=== PATIENT | female | born 1945 | race Caucasian/White ===

== ENCOUNTER 2016-11-12 06:42 | Inpatient (IN) | payer MEDICARE, MEDICAID ==
[~2016-11-12] VITALS: Ht 157.5 cm; Wt 56.2 kg
[~2016-11-12 06:42] MED LIST: ACET-461 PO; ALBU17AE23 IH; ALBU8.5H2 INH; ASP81TEC PO; AZIT250T81 PO; BUDE10.2 IH; BUDE6HFA INH; CETI10TA17 PO; CHOL4PAC19 PO; CIPR500T78 PO; CITA10TA70 PO; CPR500T PO; CPRH4T PO; DIVA-20 PO; DULA0.75 SQ; FURO20TA4; HCT25T PO; HYDR-3583 PO; INSASP10V SC; INSHUMR1 IV; INSN1U SQ; INSU100I10 SQ; INSU100I14 SQ; INSU100I32 SQ; INSU100V6 SQ; LEVO500T2 PO; LISI10TA PO; LISI40TA PO; LORA0.5T PO; METF-144 PO; METF500T4 PO; METO-333 PO; METO25TA2 PO; MIRT15TA6 PO; MIRT30TA6 PO; MTP50T PO; MTR500T PO; NAPR500T3 PO; ND-PRIM50T PO; NITR100C3 PO; OMEP20CA12 PO; ONDA4TAB11 PO; ONDA4TAB8 PO; ONDA8TAB13 PO; ONDA8TAB9 PO; PGLT30T PO; PIOG45TA PO; PNT40TEC PO; POLY17PO23 PO; PRED10TA PO; RT-ALBUINH IH; SERT50TA9 PO; SIMV20TA3 PO; SMV20T PO; SULF1TAB38 PO; TIOT18CA IH; TIOT18CA2 INH; TRAM50TA2 PO; UMEC62.5 IH; [UNRECOGNIZED DRUG - CODE] OU
--- OUTSIDE RECORDS SUMMARY | 2016-11-12 06:50 | XMS REPORT ---
Author Author ILA HERNANDEZ Organization [employer] Address Unknown Phone Unavailable Care Team Providers Care Financial Project Manager Name Role Phone ILA HERNANDEZ CP Unavailable Allergies No Known Allergies Problems Problem Type Condition Code Onset Dates Condition Status Problem Nausea R11.0 Active Problem Dry eyes H04.123 Active Problem Episode of recurrent major depressive disorder, unspecified depression episode severity F33.9 Active Problem Type 2 diabetes mellitus with hyperglycemia E11.65 Active Problem Generalized pain R52 Active Problem Diabetes mellitus due to underlying condition with hypoglycemia with coma E08.641 Active Problem Fever, unspecified fever cause R50.9 Active Problem Gastroesophageal reflux disease without esophagitis K21.9 Active Problem Seasonal allergies J30.2 Active Problem Essential hypertension I10 Active Problem Coronary artery disease involving [place] coronary artery of [place] heart without angina pectoris I25.10 Active Problem Chronic obstructive pulmonary disease, unspecified COPD type J44.9 Active Problem Type 2 diabetes mellitus with diabetic neuropathy, unspecified E11.40 Active Problem Osteoarthritis M19.90 Active Problem Chronic obstructive pulmonary disease, unspecified J44.9 Active Medications No Known Medications Results No Known Results Summary Purpose [employer] Submission
--- NOTE | 2016-11-12 07:06 | ED Fall/Injury ---
General Stated Complaint: FALL Source: patient (LIMITED HISTORIAN--PT WAS GIVEN PAIN MEDICATION BY EMS AND PT IS SOMEWHAT DROWSY AND GIVES MINIMAL ANSWERS--MOSTLY JUST NODS HEAD YES/NO APPROPRIATELY. DOES NOT APPEAR CONFUSED, ALTHOUGH DOES HAVE A DX OF DEMENTIA), EMS, custodial records, old records (ALL PMH IS FROM OLD RECORDS AND [facility] PAPERS) History of Present Illness Time seen by provider: 06:50 Initial Comments PT ARRIVES VIA EMS FROM HOME AT [facility] PT STATES SHE GOT UP SOMETIME DURING THE NIGHT TO GO TO THE BATHROOM, AND FELL, LANDING ON HER LEFT SIDE PT HAS A WALKER BUT WAS NOT USING IT AT THE TIME PT STATES SHE DID NOT HIT HER HEAD OR HAVE LOSS OF CONSCIOUSNESS C/O LEFT HIP AND LEFT WRIST PAIN --DENIES PAIN ANYWHERE ELSE WAS FOUND BY NURSING STAFF THIS AM ON THE FLOOR LAYING ON HER LEFT SIDE PT DENIES ANY HISTORY OF FRACTURES EMS GAVE FENTANYL 50 MCG PRIOR TO ARRIVAL PCP: ROQUE-SANDY-DR. GARZA, RISA HERNANDEZ Allergies and Home Medications Allergies Coded Allergies: No Known Drug Allergies (Unverified , 02/12/11) Home Medications Acetaminophen 500 Mg Tablet 1,000 MG PO Q4H PRN PRN PAIN/TEMP (Reported) TAKES 2 (500MG) TABLETS Albuterol Sulfate 8.5 Gm Hfa.aer.ad 2 PUFF IH Q4H PRN PRN SHORTNESS OF BREATH ( Reported) Aspirin 81 Mg Tabec 81 MG PO DAILY (Reported) Budesonide/Formoterol Fumarate 10.2 Gm Hfa.aer.ad 2 PUFF IH BID (Reported) Cetirizine Hcl 10 Mg Tablet 10 MG PO DAILY PRN PRN ALLERGIES (Reported) Insulin Aspart 300 Units/3 Ml Solution SQ TID (Reported) 1 UNIT FOR EVERY 35 BS ABOVE 150 3X DAILY 150-185 1 UNIT 186-221 2 UNITS [phone] 3 UNITS [phone] 4 UNITS [phone] 5 UNITS [phone] 6 UNITS [phone] 7 UNITS [phone] 8 UNITS [phone] 9 UNITS [phone] 10 UNITS CALL NURSE IF ABOVE 509 Insulin Aspart 300 Units/3 Ml Solution 10 UNITS SQ AC (Reported) Insulin Degludec 100 Unit/1 Ml Insuln.pen 30Days 5 UNITS SQ 0700 Prescribed by: JOSE ADAM on 05/27/16 1041 Lorazepam 0.5 Mg Tablet 0.25-0.5 MG PO BID (Reported) TAKES 1/2 TO 1 (0.5MG) TABLET Metformin HCl 500 Mg Tablet 500 MG PO DAILY (Reported) Metoprolol Tartrate 25 Mg Tablet 25 MG PO HS (Reported) HOLD IF PULSE BELOW 60 Naphazoline Hcl/Phenir Mal 15 Ml Drops 2 DROPS OU QID PRN PRN ALLERGIES ( Reported) Naproxen 500 Mg Tablet 500 MG PO BID WITH MEALS (Reported) Omeprazole 20 Mg Capsule.dr 20 MG PO DAILY (Reported) Ondansetron 4 Mg/Udtablet Tab.rapdis 4 MG PO Q8H PRN PRN NAUSEA (Reported) Sertraline HCl 50 Mg Tablet 50 MG PO DAILY (Reported) Tramadol HCl 50 Mg Tablet 50-100 MG PO Q6H PRN PRN PAIN (Reported) Umeclidinium [place] 62.5 Mcg Blst.w.dev 1 PUFF IH DAILY (Reported) Constitutional: no symptoms reported Eyes: No Symptoms Reported Ears, Nose, Mouth, Throat: no symptoms reported Respiratory: no symptoms reported Cardiovascular: no symptoms reported Gastrointestinal: no symptoms reported Genitourinary: no symptoms reported Musculoskeletal: see HPI Skin: no symptoms reported Psychiatric/Neurological: No Symptoms ReportedDenies Headache, Denies Numbness , Denies Paresthesia, Denies Tingling, Denies Weakness Past Tcimqxi-Wrstwd-Fpnybo Hx Patient Social History Alcohol Use: Denies Use Smoking Status: Unknown if Ever Smoked Recent Foreign Travel: No Contact w/Someone Who Travel: No Recent Hopitalizations: No Immunizations Up To Date Tetanus Booster (TDap): Unknown PED Vaccines UTD: No Date of Pneumonia Vaccine: Date of Influenza Vaccine: Jun 29, 2014 Surgeries HX Surgeries: Yes ("stomach") Surgeries: Abdominal, Cardiac Respiratory Hx Respiratory Disorders: Yes Respiratory Disorders: Asthma, Sleep Apnea, COPD Cardiovascular Hx Cardiac Disorders: Yes Cardiac Disorders: Chronic Edema/Swelling, Coronary Artery Disease, High Cholesterol, Hypertension Neurological Hx Neurological Disorders: Yes Neurological Disorders: Dementia 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 Genitourinary Hx Genitourinary Disorders: Yes Genitourinary Disorders: Renal Failure, UTI-Chronic Gastrointestinal Hx Gastrointestinal Disorders: Yes (Constipation) Gastrointestinal Disorders: Gastroesophageal Reflux, Chronic Constipation Musculoskeletal Hx Musculoskeletal Disorders: Yes Musculoskeletal Disorders: Arthritis Endocrine Hx Endocrine Disorders: Yes Endocrine Disorders: Diabetes, Insulin dep HEENT HX ENT Disorders: Yes Hearing Impairment: Hard of Hearing Cancer Hx Cancer: No Psychosocial Hx Psychiatric Problems: Yes Behavioral Health Disorders: Anxiety, Depression Integumentary HX Skin/Integumentary Disorder: No Blood Transfusions Hx Blood Disorders: Yes (Anemia) Adverse Reaction to a Blood Tr: No Family Medical History Significant Family History: Heart Disease, COPD, Seizures Family Medial History: Congenital heart disease 18 MOTHER Physical Exam Vital Signs Vital Sign - Last 12Hours 11/12/16 06:49 Temp 97.0 Pulse 55 Resp 20 B/P 186/79 Pulse Ox 97 O2 Delivery Nasal Cannula O2 Flow Rate 3 Capillary Refill : General Appearance: WD/WN no apparent distress other (DROWSY) HEENT: PERRL/EOMI normal ENT inspection Neck: non-tender full range of motion supple normal inspection Cardiovascular: regular rate, rhythm no murmur Respiratory: chest non-tender normal breath sounds no respiratory distress no accessory muscle use Gastrointestinal: normal bowel sounds non tender soft Back: normal inspection no CVA tenderness no vertebral tenderness Extremities: other (TENDERNESS TO LEFT HIP WITH SHORTENING AND EXTERNAL ROTATION. DISTAL MOTOR/SENSORY/VASCULAR INTACT. LEFT WRIST WITH DEFORMITY AND SWELLING AND LIMITED ROM. DISTAL MOTOR/SENSORY/VASCULAR INTACT. 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 APPEARS TO HAVE LIMITED MEMORY--DIFFICULT TO DETERMINE FULL ORIENTATION PT WAS GIVEN PAIN MEDICATION PRIOR TO ARRIVAL ) Skin: normal color warm/dry [place] Coma Score Best Eye Response: (4) Open Spontaneously Best Verbal Response: (5) Oriented Best Motor Response: (6) Obeys Commands Bryant Total: 15 Progress/Results/Core Measures Results/Orders Lab Results Laboratory Tests Test 11/12/16 07:05 Range/Units Activated Partial Thromboplast Time 23 L 24-35 SEC Basophils # (Auto) 0.1 0.0-0.1 10^3/uL Basophils (%) (Auto) 1 0-10 % Eosinophils # (Auto) 0.3 0.0-0.3 10^3/uL Eosinophils (%) (Auto) 3 0-10 % Hematocrit 33 L 35-52 % Hemoglobin 10.6 L 11.5-16.0 G/DL INR Comment 1.0 0.8-1.4 Lymphocytes # (Auto) 1.2 1.0-4.0 X 10^3 Lymphocytes (%) (Auto) 12 12-44 % Mean Corpuscular Hemoglobin 27 25-34 PG Mean Corpuscular Hemoglobin Concent 32 32-36 G/DL Mean Corpuscular Volume 83 80-99 FL Mean Platelet Volume 12.3 H 7.4-10.4 FL Monocytes # (Auto) 0.6 0.0-1.0 X 10^3 Monocytes (%) (Auto) 6 0-12 % Neutrophils # (Auto) 7.5 1.8-7.8 X 10^3 Neutrophils (%) (Auto) 78 H 42-75 % Platelet Count 255 130-400 10^3/uL Prothrombin Time 12.8 12.2-14.7 SEC Red Blood Count 4.00 L 4.35-5.85 10^6/uL Red Cell Distribution Width 15.9 H 10.0-14.5 % White Blood Count 9.7 4.3-11.0 10^3/uL My Orders Orders-SEBAS HOROWITZ DO Saline Lock/Iv-Start (11/12/16 06:59) Ct Head/Cervical Spine Wo (11/12/16 06:59) Chest 1 View, Ap/Pa Only (11/12/16 06:59) Forearm, Left, 2 Views (11/12/16 06:59) Hand, Left, 3 Views (11/12/16 06:59) Pelvis (11/12/16 06:59) Hip, Left, 2 Views (11/12/16 06:59) Catheter(Urinary) Insert & Ass 03,15 (11/12/16 08:04) Monitor-Rhythm Ecg Trace Only (11/12/16 08:04) Cbc With Automated Diff (11/12/16 08:04) Comprehensive Metabolic Panel (11/12/16 08:04) Magnesium (11/12/16 08:04) Protime With Inr (11/12/16 08:04) Partial Thromboplastin Time (11/12/16 08:04) Ua Culture If Indicated (11/12/16 08:04) Type And Screen (11/12/16 08:04) Saline Lock/Iv-Start (11/12/16 08:04) D5 1/2 Ns 1000 Ml Iv Solution (Dextrose (11/12/16 08:15) Ekg Tracing (11/12/16 08:19) O2 (11/12/16 08:19) Fentanyl Injection (Sublimaze Injection (11/12/16 08:24) Vital Signs/I&O Vital Sign - Last 12Hours 11/12/16 06:49 Temp 97.0 Pulse 55 Resp 20 B/P 186/79 Pulse Ox 97 O2 Delivery Nasal Cannula O2 Flow Rate [address] HEAD/CERVICAL SPINE--NO ACUTE PROCESS, CHRONIC/DEGENERATIVE CHANGES, PER RADIOLOGIST REPORT @ 0754 CXR--NO ACUTE PROCESS PELVIS AND LEFT HIP XRAYS--INTERTROCHANTERIC FX LEFT FOREARM AND HAND XRAYS--DISPLACED DISTAL RADIUS FRACTURE AND ULNAR STYLOID FRACTURE PER RADIOLOGIST XRAY REPORTS AT 0826 Reviewed: Reviewed by Me Departure Communication Progress Notes 0800--SPOKE WITH DR. EDGAR, ACCEPTS PT FOR ADMIT 0801--SPOKE WITH DR. GAMA, COVERING FOR [facility], FOR MEDICAL MANAGEMENT. WOULD LIKE CARDIOLOGY CONSULTED 0802--SPOKE WITH DR. ANDERSEN FOR CARDIOLOGY CONSULT 0810--Ziyad CHEEK CRNA AND DR. TALA ASENCIO'S PA BOTH HERE TO SEE PT Impression Impression: Primary Impression: Closed intertrochanteric fracture of left femur Additional Impression: Closed traumatic displaced fracture of distal end of left radius Disposition: ADMITTED INPATIENT Condition: Stable Decision to Admit Reason: Admit from ER (Trauma) Decision to Admit/Date: Nov 12, 2016 Time/Decision to Admit Time: 08:00 Departure-Patient Inst. Referrals: FABI GARZA MD (PCP/Family) Primary Care Physician SEBAS HOROWITZ DO Nov 12, 2016 07:06
--- NOTE | 2016-11-12 07:47 | Diagnostic Imaging Report ---
PROCEDURE: CT head and CT cervical spine without contrast. TECHNIQUE: Multiple contiguous axial images were obtained through the brain and cervical spine without the use of intravenous contrast. Sagittal and coronal reformations through the cervical spine were then performed. INDICATION: Status post fall, found on floor earlier today. CORRELATION STUDY: CT head 03/22/2011. FINDINGS: CT HEAD: There is prominence of ventricles and sulci compatible with atrophic changes. Rather pronounced scattered areas of decreased attenuation likely owing to chronic small-vessel ischemic disease. There are more focal areas of lacunar-type infarct involving the bilateral basal ganglia, bilateral thalami, as well as the cole which overall may be slightly progressed from prior study. No midline shift or mass effect. No intracranial hemorrhage. No suggestion for hyperdense MCA sign. The bony calvarium intact. CT CERVICAL SPINE: Reformatted images demonstrate trace anterolisthesis, C2 on C3 and C3 on C4. The C4 vertebral body is with retrolisthesis on C5. It is likely degenerative in nature. Rather significant disc space narrowing particularly at C4-C5 and C5-C6 with rather prominent endplate osteophytes results in osseous narrowing and encroachment on the foramina and spinal canal. Posterior elements intact with asymmetric areas of hypertrophic facet arthropathy. The odontoid intact. Lung apices with emphysematous change. Rather dense calcification of the carotid bifurcations. IMPRESSION: CT HEAD: Negative for acute intracranial abnormality. There are, however, rather pronounced changes of likely small-vessel ischemic disease as well as multifocal areas of lacunar infarct. Findings have overall progressed since prior imaging. Possibility of subtle edema could easily go undetected given the rather pronounced chronic changes. CT CERVICAL SPINE: Negative for acute fracture or traumatic subluxation. Advanced asymmetric cervical spondylosis with disc space narrowing and endplate osteophyte formation resulting in spinal canal foraminal narrowing, C4-C5 and C5-C6 levels. Dictated by: Dictated on workstation # [id number]
--- NOTE | 2016-11-12 07:58 | Diagnostic Imaging Report ---
INDICATION: Found on floor. Pain and deformity. TECHNIQUE: 2 views of the left hip. CORRELATION STUDY: None. FINDINGS: Slightly impacted intertrochanteric femur fracture is noted. Alignment otherwise anatomic. Femur/acetabula relationship demonstrates mild degenerative changes, otherwise maintained. The remainder of the left hemipelvis unremarkable. IMPRESSION: Slightly impacted left intertrochanteric femur fracture. Dictated by: Dictated on workstation # [id number]
--- NOTE | 2016-11-12 08:00 | Diagnostic Imaging Report ---
INDICATION: Found on floor with deformity. TECHNIQUE: AP pelvis 7:51 AM. CORRELATION STUDY: None. FINDINGS: Impacted left intertrochanteric femur fracture is noted. Degenerative changes about the left hip. The remainder of the pelvis is intact. Pectineal lines and obturator rings maintained. Degenerative-type changes about the right hip. There is sclerotic change about the subcapital femoral neck region. Definitive fracture line not visualized. Vascular calcification present. IMPRESSION: Impacted left intertrochanteric proximal femur fracture. There is sclerotic change with questionable deformity of right subcapital femoral neck region. Correlation with symptoms in this area is recommended, possibility of impacted fracture not excluded. Consideration for dedicated right hip views. Dictated by: Dictated on workstation # [id number]
--- NOTE | 2016-11-12 08:00 | Diagnostic Imaging Report ---
INDICATION: Found on floor. Fractures. TECHNIQUE: Single view chest 7:50 AM. CORRELATION STUDY: 05/25/2016 FINDINGS: Heart size enlarged. Vasculature within normal limits. Chronic, senescent type changes about the lung parenchyma. No infiltrate, effusion or pneumothorax. No definitive displaced fracture. IMPRESSION: 1. Chronic change of the chest without evidence for acute traumatic abnormality. Dictated by: Dictated on workstation # [id number]
--- NOTE | 2016-11-12 08:05 | Diagnostic Imaging Report ---
INDICATION: Found on floor TECHNIQUE: 2 views of the left forearm. CORRELATION STUDY: None FINDINGS: There is a transverse dorsally dislocated distal left radius fracture. Impacted ulnar styloid process fracture. More proximally, the radius and ulna appearing to be intact. Distal humerus intact. Soft tissue swelling distally. IMPRESSION: 1. Impacted displaced retracted distal left radius fracture with impacted minimally displaced ulnar styloid process fracture. Dictated by: Dictated on workstation # [id number]
[2016-11-12 08:11] LABS: BASOPHILS # (AUTO) 0.1 10^3/uL (0.0-0.1); BASOPHILS % (AUTO) 1 % (0-10); EOSINOPHILS # (AUTO) 0.3 10^3/uL (0.0-0.3); EOSINOPHILS % (AUTO) 3 % (0-10); LYMPHOCYTES # (AUTO) 1.2 X 10^3 (1.0-4.0); LYMPHOCYTES % (AUTO) 12 % (12-44); MEAN CORPUSCULAR HEMOGLOBIN 27 PG (25-34); MEAN CORPUSCULAR HGB CONC 32 G/DL (32-36); MEAN CORPUSCULAR VOLUME 83 FL (80-99); MEAN PLATELET VOLUME 12.3 FL (7.4-10.4); MONOCYTES # (AUTO) 0.6 X 10^3 (0.0-1.0); MONOCYTES % (AUTO) 6 % (0-12); NEUTROPHILS # (AUTO) 7.5 X 10^3 (1.8-7.8); NEUTROPHILS % (AUTO) 78 % (42-75); PLATELET COUNT 255 10^3/uL (130-400); RED CELL DISTRIBUTION WIDTH 15.9 % (10.0-14.5); WHITE BLOOD COUNT 9.7 10^3/uL (4.3-11.0)
[2016-11-12 08:14] LABS: PROTHROMBIN TIME PATIENT 12.8 SEC (12.2-14.7)
[2016-11-12] MEDS ORDERED: D5 1/2 NS 1000 ML IV SOLUTION 1,000 ML IV ONE (08:15)
[2016-11-12 08:22] LABS: ALBUMIN 3.9 G/DL (3.2-4.5); BILIRUBIN,TOTAL 0.4 MG/DL (0.1-1.0); CALCIUM 8.9 MG/DL (8.5-10.1); CREATININE SERUM 1.12 MG/DL (0.60-1.30); POTASSIUM 3.8 MMOL/L (3.6-5.0); TOTAL PROTEIN 6.7 G/DL (6.4-8.2)
[2016-11-12] MEDS ORDERED: fentaNYL INJECTION 100 MCG/2 ML AMP IVP STA ×2 (08:24→09:12)
[2016-11-12 08:35] LABS: BILIRUBIN,URINE NEGATIVE (NEGATIVE); KETONES,URINE 1+ (NEGATIVE); LEUKOCYTE ESTERASE ,URINE 3+ (NEGATIVE); NITRITE,URINE NEGATIVE (NEGATIVE); PH,URINE 7 (5-9); PROTEIN,URINE 2+ (NEGATIVE); UROBILINOGEN,URINE NORMAL (NORMAL)
--- NOTE | 2016-11-12 08:50 | Diagnostic Imaging Report ---
INDICATION: Status post fall, found on floor. TECHNIQUE: 3 views of the left hand. CORRELATION STUDY: None. FINDINGS: There is predominantly transverse fracture of the distal metaphysis of the radius. There is dorsal displacement just under the width of the bone. There may be slightly comminuted fracture line extending into the articular surface as well. The carpal bones follow the displaced distal radial fracture fragment. Impacted ulnar styloid process fracture. IMPRESSION: Displaced impacted overriding distal left radius fracture. Impacted ulnar styloid process fracture. Dictated by: Dictated on workstation # [id number]
[2016-11-12 08:53] LABS: WBC,URINE 25-50 /HPF
--- NOTE | 2016-11-12 09:23 | Progress Note-Pre Operative ---
Pre-Operative Progress Note H&P Reviewed The H&P was reviewed, patient examined and no changes noted. Date H&P Reviewed: Nov 12, 2016 Time H&P Reviewed: 09:22 Pre-Operative Diagnosis: left closed, displaced intertrochanteric femur and distal radius fractures MATA EDGAR MD Nov 12, 2016 09:23
--- NOTE | 2016-11-12 09:25 | Progress Note-Post Operative ---
Post-Operative Progess Note Data Processing Manager Howie Perez Pre-Operative Diagnosis left closed, displaced intertrochanteric femur and distal radius fractures Post-Operative Diagnosis 1. Left closed, displaced intertrochanteric femur fracture 2. left closed, displaced distal radius fracture Post-Op Procedure Note Date of Procedure: Nov 12, 2016 Name of Procedure: 1. open reduction and internal fixation of the left proximal femur with a dynamic hip screw 2. closed reduction and percutaneous pin fixation of the left distal radius Anesthesia Type GETA Estimated blood loss (mL): 250 ml Packing: none Specimen(s) collected none MATA EDGAR MD Nov 12, 2016 09:25
[2016-11-12] MEDS ORDERED: LABETALOL HCL 20 MG/4 ML VIAL IV ONE (09:45)
--- NOTE | 2016-11-12 09:57 | Consultation-Cardiology ---
HPI-Cardiology Cardiology Consultation: Date of Consultation 11/12/16 Date of Admission Attending Physician Andrea Crockett MD Admitting Physician Gerardo Landeros MD Consulting Physician Claribel BOOGIE MD HPI: Chief Complaint: Fall This is a 71-year-old lady who presents for mechanical fall. She denies any syncope and remembers the fall after she tripped. She denies any chest pain or shortness of breath. She denies any significant past cardiac history. Review of Systems-Cardiology Review of Systems Constitutional: No As described under HPI, No no symptoms reported, No chills, No fever, No lightheadedness, No malaise, No tiredness, No weight loss, No weight gain, No other Eyes: No As described under HPI, No no symptoms reported, No blindness, No blurred vision, No contact lenses, No drainage, No decreased acuity, No foreign body sensation, No glasses, No inflammation, No pain, No photophobia, No previous injury, No shadows, No tunnel vision, No other, No vision change Ears/Nose/Throat: No As described under HPI, No no symptoms reported, No chronic hearing loss, No epistaxis, No ear discharge, No ear pain, No loose teeth, No mouth pain, No mouth swelling, No nasal drainage, No nose pain, No recent hearing loss, No throat pain, No throat swelling, No ulcerations, No other Respiratory: No no symptoms reported, No As described under HPI, No cough, No orthopnea, No shortness of breath, No SOB with excertion, No SOB at rest, No stridor, No wheezing, No other Cardiovascular: No no symptoms reported, No As described under HPI, No chest pain, No edema, No irregular heart rate, No lightheadedness, No palpitations, No syncope, No other Gastrointestinal: No no symptoms reported, No As described under HPI, No abdomen distended, No abdominal pain, No blood streaked bowels, No constipation , No diarrhea, No difficulty swallowing, No nausea, No poor appetite, No poor fluid intake, No rectal bleeding, No vomiting, No other, No nausea/vomiting/ diarrhea, No stool coloration changes Genitourinary: No no symptoms reported, No As described under HPI, No burning, No dysuria, No discharge, No frequency, No flank pain, No hematuria, No incontinence, No pain, No urgency, No other, No urine frequency changes, No urine coloration changes Musculoskeletal: joint pain Skin: No no symptoms reported, No As described under HPI, No change in color, No change in hair/nails, No dryness, No lesions, No lumps, No rash, No other, No skin related problems, No ulcerations, No rash on exposed areas, No ulcerations on exposed areas Psychiatric/Neurological: No As described under HPI, No anxiety, No depression , No emotional problems, No focal weakness, No headache, No no symptoms reported , No numbness, No other, No pre-existing deficit, No seizure, No syncope, No tingling, No tremors, No weakness WAR-Wvfibn-Jvlasn Hx Patient Social History Alcohol Use: Denies Use Smoking Status: Unknown if Ever Smoked Type Used: Cigarettes Recent Foreign Travel: No Recent Infectious Disease Expo: No Hospitalization with Isolation: Denies Immunizations Up To Date Tetanus Booster (TDap): Unknown Date of Pneumonia Vaccine: Date of Influenza Vaccine: Jun 29, 2014 Past Medical History PMH As described under Assessment. Family Medical History Family History: Congenital heart disease 19 MOTHER Allergies and Home Medications Allergies Coded Allergies: No Known Drug Allergies (Unverified , 02/12/11) Home Medications Acetaminophen 500 Mg Tablet 1,000 MG PO Q4H PRN PRN PAIN/TEMP (Reported) TAKES 2 (500MG) TABLETS Albuterol Sulfate 8.5 Gm Hfa.aer.ad 2 PUFF IH Q4H PRN PRN SHORTNESS OF BREATH ( Reported) Aspirin 81 Mg Tabec 81 MG PO DAILY (Reported) Budesonide/Formoterol Fumarate 10.2 Gm Hfa.aer.ad 2 PUFF IH BID (Reported) Cetirizine Hcl 10 Mg Tablet 10 MG PO DAILY PRN PRN ALLERGIES (Reported) Insulin Aspart 300 Units/3 Ml Solution SQ TID (Reported) 1 UNIT FOR EVERY 35 BS ABOVE 150 3X DAILY 150-185 1 UNIT 186-221 2 UNITS 222-257 3 UNITS 258-293 4 UNITS 294-329 5 UNITS 330-365 6 UNITS 366-401 7 UNITS [phone] 8 UNITS [phone] 9 UNITS [phone] 10 UNITS CALL NURSE IF ABOVE 509 Insulin Aspart 300 Units/3 Ml Solution 10 UNITS SQ AC (Reported) Insulin Degludec 100 Unit/1 Ml Insuln.pen 30Days 5 UNITS SQ 0700 Prescribed by: JOSE ADAM on 05/27/16 1041 Lorazepam 0.5 Mg Tablet 0.25-0.5 MG PO BID (Reported) TAKES 1/2 TO 1 (0.5MG) TABLET Metformin HCl 500 Mg Tablet 500 MG PO DAILY (Reported) Metoprolol Tartrate 25 Mg Tablet 25 MG PO HS (Reported) HOLD IF PULSE BELOW 60 Naphazoline Hcl/Phenir Mal 15 Ml Drops 2 DROPS OU QID PRN PRN ALLERGIES ( Reported) Naproxen 500 Mg Tablet 500 MG PO BID WITH MEALS (Reported) Omeprazole 20 Mg Capsule.dr 20 MG PO DAILY (Reported) Ondansetron 4 Mg/Udtablet Tab.rapdis 4 MG PO Q8H PRN PRN NAUSEA (Reported) Sertraline HCl 50 Mg Tablet 50 MG PO DAILY (Reported) Tramadol HCl 50 Mg Tablet 50-100 MG PO Q6H PRN PRN PAIN (Reported) Umeclidinium [place] 62.5 Mcg Blst.w.dev 1 PUFF IH DAILY (Reported) Physical Exam-Cardiology Physical Exam Vital Signs/I&O Vital Sign - Last 12Hours 11/12/16 11/12/16 11/12/16 06:49 07:00 09:03 Temp 97.0 97.9 Pulse 55 78 Resp 20 14 B/P 186/79 201/86 Pulse Ox 97 98 97 O2 Delivery Nasal Cannula Nasal Cannula Nasal Cannula O2 Flow Rate 3 2 Capillary Refill : Less Than 3 Seconds Constitutional: No appears stated age, No AAO x 3, No apparent distress, No PERRL, No well-developed, No well-nourished, No other HEENT: No PERRL, No normal ENT inspection, No TMs normal, No pharynx normal, No scleral icterus (R), No scleral icterus (L), No pale conjunctivae (R), No pale conjunctivae (L), No photophobia, No TM abnormal (R), No TM abnormal (L), No pharyngeal erythema, No tonsillar exudate, No other, No discharge, No EOMI, No hearing is well preserved, No hard of hearing, No oral hygience is good, No ulceration, No xanthelasmas are seen Neck: No non-tender, No full range of motion, No supple, No normal inspection, No carotid bruit, No limited range of motion, No lymphadenopathy (R), No lymphadenopathy (L), No tender lateral, No tender midline, No thyromegaly, No other, No carotid pulses are 2 + bilaterally, No with good upstrokes Respiratory: No accessory muscle use, No respiratory distress, No chest tender , No chest expansion is symmetric, No chest is bilaterally symmetric, No lungs clear to percussion, No lungs clear to auscultation, No crackles, No rhonchi, No rales, No stridor, No wheezing, No pleural rub, No other Cardiovascular: No regular rate-rhythm, No irregularly irregular, No extra beats, No parasternal heave is noted, No JVD, No edema, No bradycardia, No tachycardia, No point of maximal impulse, No cardiac thrills are palpable, No S1 and S2, No gallop/S3, No gallop/S4, No diastolic murmur, systolic murmurNo friction rub, No click, No other Gastrointestinal: No tender, No soft, No round, No distended, No pulsatile mass , No organomegaly, No guarding, No rebound, No tenderness, No hernia, No mass, No audible bowel sounds, No abnormal bowel sounds, No abdominal bruits, No spleenomegaly, No other Rectal: deferred Extremities: No normal inspection, No pedal edema, No calf tenderness, No normal capillary refill, No calf tenderness, No inflammation, No pedal edema, No slow capillary refill, No swelling, No other, No abrasion, No clubbing, No cyanosis, No ecchymosis, No laceration, No no lower extremity edema bilateral, No significant edema, No tenderness, No wound Neurologic/Psychiatric: No corn press operator II-XII nml as tested, No no motor/sensory deficits, No alert, No normal mood/affect, No oriented x 3, No abnormal cerebellar tests, No abnormal corn press operator II-XII, No abnormal gait, No aphasia, No EOM palsy, No facial droop, No motor weakness, No sensory deficit, No depressed affect, No disoriented x 3, No other, No grossly intact, No power is 5/5 both on sides Skin: No normal color, No warm/dry, No cyanosis, No cool, No diaphoresis, No damp, No ecchymosis, No jaundice, No mottled, No pallor, No rash, No tattoos/ piercings, No ulcerations, No rash on exposed areas, No ulcerations on exposed areas, No other Data Review Labs Laboratory Tests 11/12/16 07:05: Activated Partial Thromboplast Time 23L, Alanine Aminotransferase (ALT/SGPT) 10 , Albumin 3.9, Alkaline Phosphatase 85, Anion Gap 10, Aspartate Amino Transf ( AST/SGOT) 16, BUN/Creatinine Ratio 22, Basophils # (Auto) 0.1, Basophils (%) ( Auto) 1, Blood Urea Nitrogen 25H, Calcium Level 8.9, Carbon Dioxide Level 26, Chloride Level 103, Creatinine 1.12, Eosinophils # (Auto) 0.3, Eosinophils (%) ( Auto) 3, Estimat Glomerular Filtration Rate 48, Glucose Level 241H, Hematocrit 33L, Hemoglobin 10.6L, INR Comment 1.0, Lymphocytes # (Auto) 1.2, Lymphocytes (% ) (Auto) 12, Magnesium Level 2.0, Mean Corpuscular Hemoglobin 27, Mean Corpuscular Hemoglobin Concent 32, Mean Corpuscular Volume 83, Mean Platelet Volume 12.3H, Monocytes # (Auto) 0.6, Monocytes (%) (Auto) 6, Neutrophils # ( Auto) 7.5, Neutrophils (%) (Auto) 78H, Platelet Count 255, Potassium Level 3.8, Prothrombin Time 12.8, Red Blood Count 4.00L, Red Cell Distribution Width 15.9H , Sodium Level 139, Total Bilirubin 0.4, Total Protein 6.7, White Blood Count 9.7 11/12/16 08:27: Urine Bacteria LARGEH, Urine Bilirubin NEGATIVE, Urine Casts NONE, Urine Clarity CLEAR, Urine Color YELLOW, Urine Crystals NONE, Urine Culture Indicated YES, Urine Glucose (UA) 4+H, Urine Ketones 1+H, Urine Leukocyte Esterase 3+H, Urine Mucus NEGATIVE, Urine Nitrite NEGATIVE, Urine Protein 2+H, Urine RBC 0-2, Urine RBC (Auto) 2+H, Urine Specific [place] 1.010L, Urine Squamous Epithelial Cells 2-5, Urine Urobilinogen NORMAL, Urine WBC 25-50H, Urine pH 7 ECG Impression ECG Initial ECG Rhythm: Normal Sinus A/P-Cardiology Assessment/Admission Diagnosis Mechanical fall, systolic murmur. Plan This is a 71-year-old lady with hypertension. She has a mechanical fall. She denies any cardiac symptoms. A systolic murmur is auscultated at the base. Echocardiogram is recommended to rule out significant aortic stenosis. Elevated blood pressure, I've recommended labetalol; further management of blood pressure is up to internal medicine. If the echocardiogram does not show severe aortic stenosis, she will be considered to be at low to intermediate risk for perioperative major adverse cardiac events undergoing an intermediate risk noncardiac surgery. Thank you for your consultation. Please call me if you have any questions. Amanda Boogie MD, FACP, FACC, FSCAI, FHRS, CCDS Interventional Cardiology Cardiac Electrophysiology Vascular Medicine and Endovascular Interventions Claribel BOOGIE MD Nov 12, 2016 9:57 am
[2016-11-12 10:10] VITALS: BP 156/73
[2016-11-12] MEDS: ONDANSETRON 4 MG/2 ML (SDV) Z0FRAN IVP PRN ×2 (10:14→20:38)
[2016-11-12] MEDS: fentaNYL INJECTION 100 MCG/2 ML AMP IV PRN ×2 (10:14→15:49)
[2016-11-12] MEDS ORDERED: ONDANSETRON 4 MG/2 ML (SDV) Z0FRAN ONE (10:38)
[2016-11-12] MEDS ORDERED: LACTATED RINGERS 1,000 ML IV ONE ×2 (10:38→12:33)
[2016-11-12] MEDS ORDERED: fentaNYL INJECTION 100 MCG/2 ML AMP ONE ×2 (10:38→12:22)
[2016-11-12] MEDS ORDERED: ROCURONIUM 50 MG/5 ML (ZEMURON) VIAL IV ONE (10:38)
[2016-11-12] MEDS ORDERED: LIDOCAINE PF 2% 10 ML (XYLOCAINE) AMP ONE (10:38)
[2016-11-12] MEDS ORDERED: proPOfol 200 MG/20 ML (DIPRIVAN) VIAL IV ONE (10:38)
[2016-11-12] MEDS ORDERED: LIDOCAINE JELLY 2% (XYLOCAINE) 5 ML TUBE ONE (10:38)
[2016-11-12] MEDS ORDERED: MIDAZOLAM 2 MG/2 ML (VERSED) VIAL ONE (10:39)
[2016-11-12] MEDS ORDERED: D5 1/2 NS 1000 ML IV SOLUTION 1,000 ML IV SCH (10:45)
[2016-11-12] MEDS ORDERED: CATHETER FLUSH 10 ML SYR IV PRN (10:45)
[2016-11-12] MEDS ORDERED: INSU100I29 SQ (10:50)
[2016-11-12] MEDS: LACTATED RINGERS 1,000 ML IV PRN ×2 (10:51→12:30)
[2016-11-12] MEDS ORDERED: ACETAMINOPHEN 325 MG TABLET/CAPLET (TYLENOL) PO PRN (11:15)
[2016-11-12] MEDS ORDERED: fentaNYL INJECTION 100 MCG/2 ML AMP IVP PRN (11:15)
[2016-11-12] MEDS ORDERED: ceFAZolin 2 GM/50 ML NS 50 ML IV ONE (11:15)
[2016-11-12] MEDS ORDERED: ONDANSETRON 4 MG/2 ML (SDV) Z0FRAN IVP PRN (11:15)
--- NOTE | 2016-11-12 12:01 | HISTORY AND PHYSICAL ---
ADMISSION TYPE: Orthopedic surgery DATE OF ADMISSION: 11/12/16. SERVICE: Orthopedics, Dr. Crockett HISTORY: This 71-year-old female was found early this morning at her assisted living residence at [facility] lying on the floor and complaining of left lower extremity and left upper extremity pain. She was then transported to [facility] emergency department and x-rays revealed a left hip intertrochanteric fracture and a left wrist displaced distal radius fracture. Orthopedics was then notified. No other events were evident and she was cleared of any sort of head or neck injury by the emergency room physician. Dr. Jose will be consulting medically. REVIEW OF SYSTEMS: Reveals no chest pain, shortness of breath or dysuria. PAST MEDICAL HISTORY: 1. Includes: Congestive heart failure. 2. COPD. 3. Hypertension. 4. Type 2 diabetes. ALLERGIES: She has no known medication allergies. FAMILY HISTORY: Includes history of heart disease and cancer and a family history of congenital heart disease. SURGICAL HISTORY: 1. Stomach/abdominal surgery/ 2. Previous cardiac surgery. SOCIAL HISTORY: Negative for tobacco use. Smoking history is otherwise unavailable and unknown at this time. Her primary care resource is [facility]. CURRENT MEDICATIONS: 1. Albuterol. 2. Aspirin. 3. Symbicort. 4. Zyrtec. 5. Insulin. 6. Lorazepam. 7. Metformin. 8. Metoprolol. 9. Omeprazole. 10. Naproxen. 11. Zofran. 12. Sertraline. 13. Tramadol. PHYSICAL EXAMINATION: Reveals a healthy, well-nourished, well-developed, female complaining of left hip and wrist pain. HEENT: Reveals normocephaly with no evidence of trauma. Pupils are equal, round, and reactive to light, oropharynx is clear. NECK EXAM: Examination reveals suppleness throughout with no palpable lymphadenopathy noted. LUNGS: Clear to auscultation bilaterally in all sommer. HEART EXAM: Reveals regular rate and rhythm. ABDOMEN: Soft, nontender and nondistended. EXTREMITY EXAMINATION: Reveals mild deformity about the left wrist with swelling and volar ecchymosis noted. She is unable to actively flex or extend the left wrist. Skin is however intact throughout the left upper extremity. LEFT HIP EXAMINATION: Examination reveals tenderness over the left hip. No warmth, erythema or ecchymosis is otherwise noted. Pain is reproduced with attempted motion. Review of x-rays: 2 views of the left hip from today [facility] show a mildly impacted intertrochanteric hip fracture. There are moderate degenerative changes noted about the hip as well. 2 views of the left forearm show a displaced metaphyseal distal radius fracture. IMPRESSION: 1. Left hip intertrochanteric fracture. 2. Displaced left distal radius fracture. PLAN: The risks, benefits, options, ramifications and recovery of open reduction, internal fixation left hip and closed reduction percutaneous pinning left distal radius were discussed with the patient. She verbalizes understanding and wishes to proceed. Job ID: [id number] Dictated Date: 11/12/2016 10:58:48 Chilling Hood Operator Date: 11/12/2016 11:51:14/farzana
[2016-11-12] MEDS ORDERED: BUPIVACAINE 0.5% 30 ML (SENSORCAINE) VIAL ONE (12:28)
[2016-11-12] MEDS ORDERED: SEVOFLURANE (ULTANE) 15 ML INHAL SOLN ONE (12:33)
[2016-11-12] MEDS: inSUlin (REGULAR) HUMAN 1 UNIT/0.01 ML (CHARGE PER UNIT) SC SCH ×2 (12:35→18:55)
[2016-11-12] MEDS ORDERED: morphine INJ 10 MG/ML 1ML (SYR OR VIAL) IVP PRN (13:00)
[2016-11-12] MEDS ORDERED: MEPERIDINE (DEMEROL) INJ 50 MG/ML IVP PRN (13:00)
--- NOTE | 2016-11-12 13:42 | Diagnostic Imaging Report ---
EXAMINATION: Fluoroscopy. INDICATION: Left wrist pain. TECHNIQUE: Fluoroscopic assistance was provided for Dr. Crockett during his left wrist pinning procedure. 28 seconds of fluoroscopy time was used. FINDINGS: Three spot films of the left wrist were received from the OR. There are now three orthopedic fixation wires traversing the impacted fracture of the distal radius seen on the prior exam of 11/12/2016. The foreshortening of the radius seen previously has been corrected and the main fracture fragments are now in near anatomic alignment. The orthopedic hardware appears to be in good position. IMPRESSION: Stable post operative left wrist. A followup AP and lateral study would be recommended for continued evaluation. Dictated by: Dictated on workstation # [id number]
--- NOTE | 2016-11-12 13:46 | Diagnostic Imaging Report ---
EXAMINATION: Fluoroscopy. INDICATION: Left hip pain. TECHNIQUE: Fluoroscopic assistance was provided for Dr. Crockett during his left hip fixation procedure. 58.5 seconds of fluoroscopy time was utilized. FINDINGS: The plain film examination of the left hip performed earlier today noted a slightly impacted left intertrochanteric femur fracture. AP and lateral spot films were received from the OR. In the interval since the prior exam, an orthopedic plate and screw compression device has been inserted along the lateral aspect of the proximal femur. The orthopedic hardware seems to be in good position. The previously noted fracture is unchanged. IMPRESSION: Stable post operative left hip. A followup AP and lateral study would be recommended for further evaluation. Dictated by: Dictated on workstation # [id number]
[2016-11-12] MEDS: cefTRIAXone INJECTION 1,000 MG in NS (IVPB) 50 ML IV SCH (13:58)
[2016-11-12] MEDS ORDERED: ceFAZolin INJECTION 1,000 MG in NS (IVPB) 50 ML IV SCH (14:00)
--- NOTE | 2016-11-12 15:17 | Physical Therapy Progress Note ---
Therapy Progress Note Attempted to perform patient evaluation this afternoon. Nurse stated before tx that the patient is very lethargic from the meds she was on and was not sure how much she would be able to do. Went to go see the patient and she did wake but had a hard time staying awake and answering questions. Will try her in the morning. RACHNA ECHOLS PT Nov 12, 2016 15:17
[2016-11-12 16:00] VITALS: BP 119/71
[2016-11-12] MEDS ORDERED: LORATADINE (CLARITIN) 10 MG TAB PO PRN (19:00)
[2016-11-12] MEDS ORDERED: RT-ALBUTEROL HFA (VENTOLIN) PER PUFF IH PRN (19:00)
[2016-11-12] MEDS ORDERED: ONDANSETRON 4 MG (ZOFRAN) ORAL DISSOLVE TAB PO PRN (19:00)
[2016-11-12] MEDS ORDERED: NAPHA/PHEN (NAPHCON-A, OPCON-A) OP SOLN 15 ML BTL OU PRN (19:00)
[2016-11-12] MEDS ORDERED: inSUlin ASPART (NovoLOG) 1 UNIT/0.01 ML (CHARGE PER UNIT) SC NR (19:00)
[2016-11-12] MEDS ORDERED: RX-TRAMADOL 50 MG (ULTRAM) TAB PPK#4 PO PRN (19:00)
[2016-11-12] MEDS ORDERED: NS IV 1000 ML 1,000 ML ONE (19:03)
[2016-11-12] MEDS: NS IV 1000 ML 1,000 ML IV SCH (19:05)
[2016-11-12] MEDS ORDERED: RT-ALBUTEROL SULF 2.5 MG/3 ML PRE-MIX VIAL INH PRN (19:15)
[2016-11-12 20:00] VITALS: BP 112/59
[2016-11-12] MEDS: RT-ADVAIR HFA 115/21 MCG PER PUFF IH SCH (20:01)
[2016-11-12] MEDS ORDERED: inSUlin DETERMIR 1 UNIT/0.01 ML (LEVEMIR) CHARGE PER UNIT SQ NR (21:00)
[2016-11-12] MEDS ORDERED: inSUlin DETERMIR 1 UNIT/0.01 ML (LEVEMIR) CHARGE PER UNIT SQ SCH (21:00)
[2016-11-12] MEDS ORDERED: INSULIN DETEMIR 6 UNIT SQ SCH (21:00)
[2016-11-12] MEDS: meTOprolol TARTRATE 25 MG (LOPRESSOR) TABLET PO SCH (21:18)
[2016-11-12] MEDS: LORazepam 0.5 MG (ATIVAN) TABLET PO SCH (21:19)
[2016-11-12] MEDS: inSUlin ASPART (NovoLOG) 1 UNIT/0.01 ML (CHARGE PER UNIT) SC SCH (21:34)
[2016-11-13] VITALS (11 sets, daily range): BP systolic 124–166; BP diastolic 59–96
[2016-11-13] MEDS: oxyCODONE/APAP 5/325MG (PERCOCET 5) TABLET PO PRN ×2 (05:27→18:50)
[2016-11-13] MEDS: PANTOPRAZOLE 20 MG TABLET (PROTONIX) PO SCH (05:27)
[2016-11-13] MEDS: NS IV 1000 ML 1,000 ML IV SCH (05:53)
[2016-11-13] MEDS ORDERED: inSUlin ASPART (NovoLOG) 1 UNIT/0.01 ML (CHARGE PER UNIT) SC SCH (06:00)
[2016-11-13] MEDS: inSUlin ASPART (NovoLOG) 1 UNIT/0.01 ML (CHARGE PER UNIT) SC SCH ×3 (06:00→17:22)
--- NOTE | 2016-11-13 07:24 | Progress Note-Standard ---
Standard Progress Note Progress Notes/Assess & Plan Progress/Assessment & Plan No complaints Vital Signs Date Time Temp Pulse Resp B/P Pulse Ox O2 Delivery O2 Flow Rate FiO2 11/13/16 04:00 97.2 77 18 164/68 94 Nasal Cannula 4.50 11/13/16 00:00 96.9 80 18 146/59 96 Nasal Cannula 4.50 11/12/16 21:00 High Flow NC 3.00 11/12/16 20:02 93 3.00 11/12/16 20:00 99.1 103 20 112/59 94 Nasal Cannula 4.50 11/12/16 16:00 98.0 95 16 119/71 91 Nasal Cannula 4.50 11/12/16 10:15 91 Nasal Cannula 3.00 11/12/16 10:10 156/73 11/12/16 10:10 3.00 11/12/16 09:51 97.9 75 14 97 2 11/12/16 09:03 97.9 78 14 201/86 97 Nasal Cannula I & O 11/13/16 07:00 Intake Total 3310 ml Output Total 2465 ml Balance 845 ml Laboratory Tests Test 11/12/16 08:27 11/12/16 18:57 11/12/16 20:41 11/13/16 04:44 Range/Units Urine Bacteria LARGE H /HPF Urine Bilirubin NEGATIVE NEGATIVE Urine Casts NONE /LPF Urine Clarity CLEAR Urine Color YELLOW Urine Crystals NONE /LPF Urine Culture Indicated YES Urine Glucose (UA) 4+ H NEGATIVE Urine Ketones 1+ H NEGATIVE Urine Leukocyte Esterase 3+ H NEGATIVE Urine Mucus NEGATIVE /LPF Urine Nitrite NEGATIVE NEGATIVE Urine Protein 2+ H NEGATIVE Urine RBC 0-2 /HPF Urine RBC (Auto) 2+ H NEGATIVE Urine Specific [place] 1.010 L 1.016-1.022 Urine Squamous Epithelial Cells 2-5 /HPF Urine Urobilinogen NORMAL NORMAL MG/DL Urine WBC 25-50 H /HPF Urine pH 7 5-9 Glucose Level 685 *H 70-105 MG/DL Glucometer 479 *H 40 *L 70-110 MG/DL Test 11/13/16 05:07 11/13/16 05:34 Range/Units Glucometer 53 *L 127 H 70-110 MG/DL L hip dressing intact. Intact DF and PF of toes and ankle. Brisk cap refill L UE splint in place. Intact MCP flex/ext/abduction s/p ORIF L hip and L wrist mobilize will likely require NH placement MATA EDGAR MD Nov 13, 2016 07:24
[2016-11-13] MEDS: cefTRIAXone INJECTION 1,000 MG in NS (IVPB) 50 ML IV SCH (08:39)
[2016-11-13] MEDS: LORazepam 0.5 MG (ATIVAN) TABLET PO SCH ×2 (08:39→20:08)
[2016-11-13] MEDS: inSUlin DETERMIR 1 UNIT/0.01 ML (LEVEMIR) CHARGE PER UNIT SQ SCH ×2 (08:40→21:00)
[2016-11-13] MEDS: SERTRALINE 50 MG (ZOLOFT) TABLET PO SCH (08:40)
[2016-11-13] MEDS: RT-ADVAIR HFA 115/21 MCG PER PUFF IH SCH ×2 (08:50→20:20)
[2016-11-13] MEDS: UMECLIDINIUM BROMIDE (INCRUSE ELLIPTA) 7'S IH SCH (08:52)
[2016-11-13] MEDS ORDERED: OMEPRAZOLE 20 MG (PriLOSEC) CAP NON-FORMULARY PO SCH (09:00)
--- NOTE | 2016-11-13 10:55 | Physical Therapy Evaluation ---
PT Evaluation-General Medical Diagnosis Admission Date Nov 12, 2016 at 08:00 Medical Diagnosis: Left hip and wrist fracture Onset Date: Nov 12, 2016 Therapy Diagnosis Therapy Diagnosis: weakness; abn gait Height/Weight Height (Feet): 5 Height (Inches): 2.00 Weight (Pounds): 135 Weight (Ounces): 0.0 Precautions Precautions/Isolations: Standard Precautions Weight Bear Status Weight Bearing Restriction: Touch Toe Bearing (LLE) Location Restriction: L LE Referral Physician: Keira Reason for Referral: Evaluation/Treatment Medical History Pertinent Medical History: CAD, COPD, DM, GERD Current History Pt reports she "just tripped" and fell sustaining the about fractures. Post repair of both with ORIF; cast on left UE. Reviewed History: Yes Social History Home: Assisted Living Entry Into Home: Level Entry Prior/Core FIM Prior Level of Function Functional [place] Measure 0=Not Assessed/NA 4=Minimal Assistance 1=Total Assistance 5=Supervision or Setup 2=Maximal Assistance 6=Modified Clarke 3=Moderate Assistance 7=Complete Clarke Pt was ambulatory without assist using a fWW; she reports she had assist with bathing and self care. Reports she did not leave th facility much so limited community ambulation. PT Evaluation-Current Subjective Agrees to PT. Very soft spoken. Quiet. Objective Patient Orientation: Person, Place, Time, Situation Problem Solving: Fair Attachments: Oxygen, IV ROM/Strength ROM Lower Extremities Right LE is WFL; L LE is functional but guarded with movement due to recent surgery. Strenght Lower Extremities Right LE grossly 3/5; left LE NT--able to at least produce muscle contraction all major muscle groups. Integumentary/Posture Integumentary intact Bowel Incontinence: No Bladder Incontinence: Leonard Cath Posture kyphotic with rounded shoulders. Neuromuscular (Tone, Coordination, Reflexes) Decreased reaction time but functional; coordination intac.t Sensory Hearing: Impaired Hand Dominance: Right Sensation Right Lower Extremit: Intact Sensation Left Lower Extremity: Intact Transfers Functional [place] Measure 0=Not Assessed/NA 4=Minimal Assistance 1=Total Assistance 5=Supervision or Setup 2=Maximal Assistance 6=Modified Clarke 3=Moderate Assistance 7=Complete [place] Transfers (B, C, W/C) (FIM): 1 All bed mobility is dependent on 2 person assist. Sat EOB x several minutes with mod assist for balance and trunk control. Attempted sit to stand x 1 with platform walker, pt putting full weight through the left LE. Pt in bed post treatment with needs met, O2 in situ, SCD's in place, heels elevated. Balance Sitting Static: Poor Treatment Functional activity with sitting EOB and working to right self and engage core musclulature. Pt performed AP and LAQ on the right x 5 and AAROm on the left x 5 Assessment/Needs Presents post fall with left hip and wrist fracture that have been repaired. Pt requires much assist with all functional mobility and is limited in her ability to participate at this time. She is aware but seems a bit foggy. Unable to maintain TTWB at this time. Pt has potential to make functional gains , but feel it may take an extended length of time due to her TTWB status. She will benefit from skilled services to improve her functional mobility. Rehab Potential: Good PT Short Term Goals Short Term Goals Time Frame: Nov 18, 2016 Transfers (B,C,W/C) (FIM): 3 Gait (FIM): 2 Distance (FIM): 1=up to 49 ft Gait Distance Comment: steps Gait Assistive Device: Walker Platform PT Assistant Associate Full Professor Goals Assistant Associate Full Professor Goals to be set upon transfer to different status PT Plan Problem List Problem List: Activity Tolerance, Functional Strength, Safety, Balance, Gait, Transfer, Bed Mobility Treatment/Plan Treatment Plan: Continue Plan of Care Treatment Plan: Bed Mobility, Education, Functional Activity [place], Functional Strength, Gait, Safety, Therapeutic Exercise, Transfers Treatment Duration: Nov 18, 2016 # of days/week 6-7 Visits Per Week: 11-12 Pt/Family Agrees w/Plan: Yes Safety Risks/Education Patient Education: Transfer Techniques Teaching Recipient: Patient Teaching Methods: Discussion Response to Teaching: Reinforcement Needed Time/GCodes Time In: 930 Time Out: 1005 Total Billed Treatment Time: 35 Total Billed Treatment visit EV 15 FA 20 YOSHI CHASE PT Nov 13, 2016 10:55
[2016-11-13 11:11] LABS: BASOPHILS % (AUTO) 0 % (0-10); EOSINOPHILS % (AUTO) 0 % (0-10); LYMPHOCYTES # (AUTO) 1.4 X 10^3 (1.0-4.0); LYMPHOCYTES % (AUTO) 11 % (12-44); MEAN CORPUSCULAR HEMOGLOBIN 27 PG (25-34); MEAN CORPUSCULAR HGB CONC 32 G/DL (32-36); MEAN CORPUSCULAR VOLUME 84 FL (80-99); MEAN PLATELET VOLUME 12.1 FL (7.4-10.4); MONOCYTES # (AUTO) 1.3 X 10^3 (0.0-1.0); MONOCYTES % (AUTO) 10 % (0-12); NEUTROPHILS # (AUTO) 10.3 X 10^3 (1.8-7.8); NEUTROPHILS % (AUTO) 79 % (42-75); PLATELET COUNT 218 10^3/uL (130-400); RED BLOOD COUNT 2.85 10^6/uL (4.35-5.85); RED CELL DISTRIBUTION WIDTH 15.7 % (10.0-14.5)
[2016-11-13 11:39] LABS: ALBUMIN 3.3 G/DL (3.2-4.5); BILIRUBIN,TOTAL 0.3 MG/DL (0.1-1.0); CALCIUM 8.7 MG/DL (8.5-10.1); CREATININE SERUM 1.16 MG/DL (0.60-1.30); POTASSIUM 3.9 MMOL/L (3.6-5.0); TOTAL PROTEIN 5.9 G/DL (6.4-8.2)
--- NOTE | 2016-11-13 11:46 | Progress Note-Hospitalist ---
Progress Note HPI/CC on Admission CC: Left hip fracture w/left radius fracture HPI: This is a 71yoWF that had a fall at home, resulting in current fracture which be repaired today. vacation planner: RN states that pt will go to OR soon. Patient Interview: Pt states that she has not had a hip fracture before. Pt's PCP is Dr. Landeros at [facility], although pt had difficulty remembering this. I review prior records and it appears that she does have cognitive decline so minimal details obtained Physical exam stable. Scribed by [place] under the direct supervision of Dr. Gama. Progress Notes/Assess & Plan Date Seen 11/13/16 Admission Dx/Process Assessment: Acute left hip fracture with left radius fracture in need of repair today by Dr. Keira Loyola Acute UTI Diabetes mellitus COPD CHF HTN CRI Poor recall with cognitive decline appears chronic Diagonsis/Assessment & Plan Chart Review: Labile blood sugars throughout night Switched fluids from D5 normal to NS which has helped Rocephin initiated yesterday pre-op Ucx E. coli will follow up with sensitivity tomorrow No fever BP high vacation planner: RN states that labs were delayed today for this pt. Patient Interview: Pt states that she is tired today. Physical exam stable. no fever, vital signs stable, pleasant, chronically ill, frail Regular rate and rhythm, clear to auscultation bilaterally but diminished in the bases no edema Laboratory Tests 11/12/16 18:57 11/13/16 11:04 Assessment: Acute left hip fracture with left radius fracture repair POD # 1 Postop anemia due to blood loss [place] Acute UTI Diabetes mellitus COPD CHF HTN CRI Poor recall with cognitive decline appears chronic Plan: Palliative care consult since patient appears to have severe poor prognosis Check labs Zofran for nausea Monitor COPD Inpatient rehabilitation eval after recovery from surgery Rocephin empirically for UTI Monitor for delirium transfuse 2 units Scribed by [place] under the direct supervision of Dr. Gama. JAMES GAMA DO Nov 13, 2016 11:46
[2016-11-13] MEDS ORDERED: NS IV 500 ML 500 ML IV SCH (12:34)
--- NOTE | 2016-11-13 13:30 | Anesthesia-General Post-Op ---
General Patient Condition Mental Status/LOC: Same as Preop Cardiovascular: Satisfactory Nausea/Vomiting: Absent Respiratory: Satisfactory Pain: Controlled Complications: Absent Post Op Complications Complications None Follow Up Care/Instructions Patient Instructions None needed. Anesthesia/Patient Condition Patient Condition Patient is doing well, no complaints, stable vital signs, no apparent adverse anesthesia problems. No complications reported per nursing. KIRAN EDMONDS CRNA Nov 13, 2016 13:30
--- NOTE | 2016-11-13 13:46 | OPERATIVE REPORT ---
PROCEDURE PHYSICIAN: MATA EDGAR DATE OF PROCEDURE: 11/12/2016 PREOPERATIVE DIAGNOSIS: 1. Left closed displaced intertrochanteric femur fracture. 2. Left closed displaced distal radius fracture (Col[place] type). POSTOPERATIVE DIAGNOSIS: 1. Left closed displaced intertrochanteric femur fracture. 2. Left closed displaced distal radius fracture (Colles type). PROCEDURE: 1. Left hip open reduction and internal fixation using a dynamic hip screw. 2. Left distal radius closed reduction and percutaneous pin fixation. SURGEON: Keira [employer] CONSULTANT: Howie Perez who assisted throughout the procedure and closed the incisions. ANESTHESIA: General endotracheal Howie Guzman CRNA. ESTIMATED BLOOD LOSS: 250 mL. DRAINS: None. COMPLICATIONS: None. MATERIALS: 0.54 K wires x3 in the wrist and Synthes 135 degrees 4 hole dynamic hip screw with an 80 mm lag screw. POSTOPERATIVE PLAN: Partial weight-bearing left lower and upper extremities. The patient was transported to the recovery room, awake and in stable condition. STATEMENT OF MEDICAL NECESSITY: The patient is a 71-year-old female who was found on her floor this morning at her assisted living facility. She had complaints of left wrist and left hip pain. She was evaluated in the emergency department where she was found to have left distal radius and left intertrochanteric femur fracture. She denies antecedent pain. She was admitted and due to the displaced nature of her fracture and the desire to maintain her ambulatory status, it was elected to proceed with surgical intervention. PROCEDURE: After risks and benefits of the procedure were discussed and questions were answered an informed consent was signed and placed on chart. The operative sites were confirmed in the preoperative holding area and the patient was transported to the operating room. After adequate levels of general endotracheal anesthetic were obtained, the patient's left upper extremity was prepped and draped in the usual sterile fashion. Closed reduction was performed and three 0.54 K wires were placed; two from the radial side and one from the ulnar side from a distal to proximal direction, all felt to be well placed under fluoroscopy and fluoroscopy in the AP and lateral oblique planes revealed anatomic reduction of the fracture's well-placed hardware. A soft dressing was applied after padding the pins at the skin very carefully and a sugar tong splint were applied. Traction was then applied to the left lower extremity and fluoroscopy in AP and lateral planes revealed well reduced fracture. The left hip was then prepped and draped in the usual sterile fashion. A lateral incision was utilized. The iliotibial band was incised in line with the incision. The vastus lateralis was elevated off of the lateral femur. Through the 135 degree guide a guidewire was passed into the femoral head. This was felt to be well positioned and AP and lateral planes. It was slightly anterior but felt to be adequate. This was then overreamed to a depth of 75 mm and an 80 mm lag screw was placed with good purchase. A 4-hole side plate was then placed with 4 cortical screws placed all with excellent purchase. Fluoroscopy in AP and lateral planes revealed well reduced fracture with well-placed hardware. Under life time fluoroscopy the femur moved as a unit. The wound was copiously irrigated. The iliotibial band was closed in running fashion with number 1 Vicryl. The wound was further irrigated. 0 Vicryl was used for deep subcutaneous tissue. 2-0 Vicryl was used for the superficial subcutaneous tissue. [place] used on the skin. Soft dressing was applied. The patient was transported to the recovery awake, in stable condition. Job ID: [id number] Dictated Date: 11/12/2016 13:05:43 Mathematics Academic Chair Date: 11/13/2016 12:16:51 / farzana
--- NOTE | 2016-11-13 15:41 | Physical Therapy Daily Note ---
PT Daily Note-Current Subjective Patient is in bed and nods her head to agree to PT. Pain Numeric Pain Scale: 8 Location: Left Location Body Site: Hip Comment: FLACC Mental Status Patient Orientation: Confused, Listless Attachments: Oxygen, Leonard Catheter Transfers Functional [place] Measure 0=Not Assessed/NA 4=Minimal Assistance 1=Total Assistance 5=Supervision or Setup 2=Maximal Assistance 6=Modified [place] 3=Moderate Assistance 7=Complete IndependenceIRFPAI Quality Coding Scale 6 Independent with activity with or without an assistive device 5 Patient requires set up or clean up by helper. Patient completes activity by themselves 4 Supervision or touching assist (CGA). [place] provide cues , steadying assist 3 The helper provides less than half the effort to complete the activity 2 The helper provides more than half the effort to complete the activity 1 Dependent. The helper does all the effort to complete an activity 7 Patient refused to complete or attempt activity 9 The patient did not perform the activity before the current illness or injury 88 Not attempted due to Medical conditions or safety concerns Transfers (B, C, W/C) (FIM): 1 Scootin Rollin Supine to/from Sit: 1 Patient sat EOB x 5 min max assist Weight Bearing Weight Bearing Restriction: Touch Toe Bearing Location Restriction: L LE Exercises Supine Ex: Ankle pumps, Heel Slides Supine Reps: 15 (AAROM) Seated Therapy Exercises: Ankle pumps, Long arc quads Seated Reps: 15 (AAROM) Assessment Patient tolerates minimal activity and requires dependent assist with all mobility. Patient is repositioned to sidelying right with pillows between LE's and behind back. PT Short Term Goals Short Term Goals Time Frame: Nov 18, 2016 Transfers (B,C,W/C) (FIM): 3 Gait (FIM): 2 Distance (FIM): 1=up to 49 ft Gait Distance Comment: steps Gait Assistive Device: Walker Platform PT Plan Treatment/Plan Treatment Plan: Continue Plan of Care Treatment Plan: Bed Mobility, Education, Functional Activity [place], Functional Strength, Gait, Safety, Therapeutic Exercise, Transfers Treatment Duration: Nov 18, 2016 Visits Per Week: 11-12 Time/GCodes Time In: 1515 Time Out: 1525 Total Billed Treatment Time: 10 Total Billed Treatment 1 visit FA 10 min PORTER JOY PT Nov 13, 2016 15:41
[2016-11-13] MEDS: meTOprolol TARTRATE 25 MG (LOPRESSOR) TABLET PO SCH (20:08)
[2016-11-14 00:12] VITALS: BP 152/73
[2016-11-14 04:00] VITALS: BP 187/80
[2016-11-14 04:53] LABS: BASOPHILS # (AUTO) 0.1 10^3/uL (0.0-0.1); BASOPHILS % (AUTO) 0 % (0-10); EOSINOPHILS # (AUTO) 0.4 10^3/uL (0.0-0.3); EOSINOPHILS % (AUTO) 3 % (0-10); LYMPHOCYTES % (AUTO) 8 % (12-44); MEAN CORPUSCULAR HEMOGLOBIN 28 PG (25-34); MEAN CORPUSCULAR HGB CONC 33 G/DL (32-36); MEAN CORPUSCULAR VOLUME 84 FL (80-99); MONOCYTES # (AUTO) 1.3 X 10^3 (0.0-1.0); MONOCYTES % (AUTO) 10 % (0-12); NEUTROPHILS # (AUTO) 9.6 X 10^3 (1.8-7.8); NEUTROPHILS % (AUTO) 78 % (42-75); PLATELET COUNT 163 10^3/uL (130-400); RED BLOOD COUNT 3.79 10^6/uL (4.35-5.85); RED CELL DISTRIBUTION WIDTH 15.2 % (10.0-14.5); WHITE BLOOD COUNT 12.3 10^3/uL (4.3-11.0)
[2016-11-14 05:14] LABS: ALANINE AMINOTRANSFERASE 14 U/L (0-55); ALBUMIN 3.2 G/DL (3.2-4.5); ANION GAP 9 MMOL/L (5-14); ASPARTATE AMINO TRANSFERASE 37 U/L (5-34); BILIRUBIN,TOTAL 0.6 MG/DL (0.1-1.0); BLOOD UREA NITROGEN 17 MG/DL (7-18); BUN/CREATININE RATIO 20; CALCIUM 8.5 MG/DL (8.5-10.1); CARBON DIOXIDE 25 MMOL/L (21-32); CHLORIDE 105 MMOL/L (98-107); CREATININE SERUM 0.86 MG/DL (0.60-1.30); GFR ESTIMATED > 60; GLUCOSE 145 MG/DL (70-105); POTASSIUM 3.7 MMOL/L (3.6-5.0); SODIUM 139 MMOL/L (135-145); TOTAL PROTEIN 5.9 G/DL (6.4-8.2)
[2016-11-14] MEDS: inSUlin ASPART (NovoLOG) 1 UNIT/0.01 ML (CHARGE PER UNIT) SC SCH ×3 (05:32→16:26)
[2016-11-14] MEDS: PANTOPRAZOLE 20 MG TABLET (PROTONIX) PO SCH (05:56)
--- NOTE | 2016-11-14 07:03 | Progress Note-Standard ---
Standard Progress Note Progress Notes/Assess & Plan Progress/Assessment & Plan No complaints Vital Signs Date Time Temp Pulse Resp B/P Pulse Ox O2 Delivery O2 Flow Rate FiO2 11/13/16 04:00 97.2 77 18 164/68 94 Nasal Cannula 4.50 11/13/16 00:00 96.9 80 18 146/59 96 Nasal Cannula 4.50 11/12/16 21:00 High Flow NC 3.00 11/12/16 20:02 93 3.00 11/12/16 20:00 99.1 103 20 112/59 94 Nasal Cannula 4.50 11/12/16 16:00 98.0 95 16 119/71 91 Nasal Cannula 4.50 11/12/16 10:15 91 Nasal Cannula 3.00 11/12/16 10:10 156/73 11/12/16 10:10 3.00 11/12/16 09:51 97.9 75 14 97 2 11/12/16 09:03 97.9 78 14 201/86 97 Nasal Cannula I & O 11/13/16 07:00 Intake Total 3310 ml Output Total 2465 ml Balance 845 ml Laboratory Tests Test 11/12/16 08:27 11/12/16 18:57 11/12/16 20:41 11/13/16 04:44 Range/Units Urine Bacteria LARGE H /HPF Urine Bilirubin NEGATIVE NEGATIVE Urine Casts NONE /LPF Urine Clarity CLEAR Urine Color YELLOW Urine Crystals NONE /LPF Urine Culture Indicated YES Urine Glucose (UA) 4+ H NEGATIVE Urine Ketones 1+ H NEGATIVE Urine Leukocyte Esterase 3+ H NEGATIVE Urine Mucus NEGATIVE /LPF Urine Nitrite NEGATIVE NEGATIVE Urine Protein 2+ H NEGATIVE Urine RBC 0-2 /HPF Urine RBC (Auto) 2+ H NEGATIVE Urine Specific [place] 1.010 L 1.016-1.022 Urine Squamous Epithelial Cells 2-5 /HPF Urine Urobilinogen NORMAL NORMAL MG/DL Urine WBC 25-50 H /HPF Urine pH 7 5-9 Glucose Level 685 *H 70-105 MG/DL Glucometer 479 *H 40 *L 70-110 MG/DL Test 11/13/16 05:07 11/13/16 05:34 Range/Units Glucometer 53 *L 127 H 70-110 MG/DL L hip dressing intact. Intact DF and PF of toes and ankle. Brisk cap refill L UE splint in place. Intact MCP flex/ext/abduction s/p ORIF L hip and L wrist mobilize will likely require NH placement Final Diagnosis No complaints Vital Signs Date Time Temp Pulse Resp B/P Pulse Ox O2 Delivery O2 Flow Rate FiO2 11/14/16 04:00 98.8 83 24 187/80 97 High Flow NC 4.00 11/14/16 00:12 98.4 88 20 152/73 96 High Flow NC 3.00 11/13/16 21:01 99.9 96 148/96 96 3.00 11/13/16 20:48 High Flow NC 4.00 11/13/16 20:20 4.00 11/13/16 19:11 98.7 98 20 165/81 92 4.00 11/13/16 19:11 98.7 98 20 165/81 92 Nasal Cannula 3.50 11/13/16 18:48 98.4 84 20 166/83 11/13/16 18:08 98.5 95 20 160/77 4.00 11/13/16 16:02 98.3 89 20 149/85 95 2.00 11/13/16 15:48 98.1 81 22 156/76 96 4.00 11/13/16 15:40 98.1 81 22 156/76 96 Nasal Cannula 3.50 11/13/16 12:00 98.8 82 20 124/60 95 Nasal Cannula 4.00 11/13/16 09:44 83 94 Nasal Cannula 4.00 11/13/16 09:00 High Flow NC 3.00 11/13/16 08:53 77 4.00 11/13/16 08:52 77 4.00 11/13/16 08:00 98.7 90 20 152/67 96 I & O 11/14/16 07:00 Intake Total 2110 ml Output Total 825 ml Balance 1285 ml Laboratory Tests Test 11/13/16 11:04 11/13/16 11:16 11/13/16 15:40 11/13/16 20:47 Range/Units Alanine Aminotransferase (ALT/SGPT) 13 0-55 U/L Albumin 3.3 3.2-4.5 G/DL Alkaline Phosphatase 72 40-136 U/L Anion Gap 11 5-14 MMOL/L Aspartate Amino Transf (AST/SGOT) 33 5-34 U/L BUN/Creatinine Ratio 22 Basophils # (Auto) 0.0 0.0-0.1 10^3/uL Basophils (%) (Auto) 0 0-10 % Blood Urea Nitrogen 25 H 7-18 MG/DL Calcium Level 8.7 8.5-10.1 MG/DL Carbon Dioxide Level 22 21-32 MMOL/L Chloride Level 106 98-107 MMOL/L Creatinine 1.16 0.60-1.30 MG/DL Eosinophils # (Auto) 0.0 0.0-0.3 10^3/uL Eosinophils (%) (Auto) 0 0-10 % Estimat Glomerular Filtration Rate 46 Glucose Level 319 H 70-105 MG/DL Hematocrit 24 L 35-52 % Hemoglobin 7.7 #L 11.5-16.0 G/DL Lymphocytes # (Auto) 1.4 1.0-4.0 X 10^3 Lymphocytes (%) (Auto) 11 L 12-44 % Mean Corpuscular Hemoglobin 27 25-34 PG Mean Corpuscular Hemoglobin Concent 32 32-36 G/DL Mean Corpuscular Volume 84 80-99 FL Mean Platelet Volume 12.1 H 7.4-10.4 FL Monocytes # (Auto) 1.3 H 0.0-1.0 X 10^3 Monocytes (%) (Auto) 10 0-12 % Neutrophils # (Auto) 10.3 H 1.8-7.8 X 10^3 Neutrophils (%) (Auto) 79 H 42-75 % Platelet Count 218 130-400 10^3/uL Potassium Level 3.9 3.6-5.0 MMOL/L Red Blood Count 2.85 L 4.35-5.85 10^6/uL Red Cell Distribution Width 15.7 H 10.0-14.5 % Sodium Level 139 135-145 MMOL/L Total Bilirubin 0.3 0.1-1.0 MG/DL Total Protein 5.9 L 6.4-8.2 G/DL White Blood Count 13.0 H 4.3-11.0 10^3/uL Glucometer 316 H 67 L 96 70-110 MG/DL Test 11/14/16 04:40 Range/Units Alanine Aminotransferase (ALT/SGPT) 14 0-55 U/L Albumin 3.2 3.2-4.5 G/DL Alkaline Phosphatase 82 40-136 U/L Anion Gap 9 5-14 MMOL/L Aspartate Amino Transf (AST/SGOT) 37 H 5-34 U/L BUN/Creatinine Ratio 20 Basophils # (Auto) 0.1 0.0-0.1 10^3/uL Basophils (%) (Auto) 0 0-10 % Blood Urea Nitrogen 17 7-18 MG/DL Calcium Level 8.5 8.5-10.1 MG/DL Carbon Dioxide Level 25 21-32 MMOL/L Chloride Level 105 98-107 MMOL/L Creatinine 0.86 0.60-1.30 MG/DL Eosinophils # (Auto) 0.4 H 0.0-0.3 10^3/uL Eosinophils (%) (Auto) 3 0-10 % Estimat Glomerular Filtration Rate > 60 Glucose Level 145 H 70-105 MG/DL Hematocrit 32 L 35-52 % Hemoglobin 10.6 #L 11.5-16.0 G/DL Lymphocytes # (Auto) 1.0 1.0-4.0 X 10^3 Lymphocytes (%) (Auto) 8 L 12-44 % Mean Corpuscular Hemoglobin 28 25-34 PG Mean Corpuscular Hemoglobin Concent 33 32-36 G/DL Mean Corpuscular Volume 84 80-99 FL Mean Platelet Volume 12.0 H 7.4-10.4 FL Monocytes # (Auto) 1.3 H 0.0-1.0 X 10^3 Monocytes (%) (Auto) 10 0-12 % Neutrophils # (Auto) 9.6 H 1.8-7.8 X 10^3 Neutrophils (%) (Auto) 78 H 42-75 % Platelet Count 163 130-400 10^3/uL Potassium Level 3.7 3.6-5.0 MMOL/L Red Blood Count 3.79 L 4.35-5.85 10^6/uL Red Cell Distribution Width 15.2 H 10.0-14.5 % Sodium Level 139 135-145 MMOL/L Total Bilirubin 0.6 0.1-1.0 MG/DL Total Protein 5.9 L 6.4-8.2 G/DL White Blood Count 12.3 H 4.3-11.0 10^3/uL LUE splint in place. NVI LLE--incision clean and dry. Neg Lorna's s/p ORIF L hip and L wrist mobilize DC Leonard await DC plans MATA EDGAR MD Nov 14, 2016 07:03
[2016-11-14 08:13] VITALS: BP 168/72
[2016-11-14] MEDS: UMECLIDINIUM BROMIDE (INCRUSE ELLIPTA) 7'S IH SCH (08:26)
[2016-11-14] MEDS: RT-ADVAIR HFA 115/21 MCG PER PUFF IH SCH ×2 (08:26→20:30)
--- NOTE | 2016-11-14 09:14 | Physical Therapy Daily Note ---
PT Daily Note-Current Subjective Patient is in bed and found to be incontinent urine. Pain Numeric Pain Scale: 10-Worst Possible Pain Location: Left Location Body Site: Hip Comment: FLACC Mental Status Patient Orientation: [place] Attachments: Oxygen Transfers Functional [place] Measure 0=Not Assessed/NA 4=Minimal Assistance 1=Total Assistance 5=Supervision or Setup 2=Maximal Assistance 6=Modified [place] 3=Moderate Assistance 7=Complete IndependenceIRFPAI Quality Coding Scale 6 Independent with activity with or without an assistive device 5 Patient requires set up or clean up by helper. Patient completes activity by themselves 4 Supervision or touching assist (CGA). [place] provide cues , steadying assist 3 The helper provides less than half the effort to complete the activity 2 The helper provides more than half the effort to complete the activity 1 Dependent. The helper does all the effort to complete an activity 7 Patient refused to complete or attempt activity 9 The patient did not perform the activity before the current illness or injury 88 Not attempted due to Medical conditions or safety concerns Transfers (B, C, W/C) (FIM): 1 Scootin Supine to/from Sit: 1 Sit to/from Stand: 1 Bed to/from Chair: 1 dependent assist x 2 with patient unable to comply with TTWB left LE Weight Bearing Weight Bearing Restriction: Touch Toe Bearing Location Restriction: L LE Exercises Supine Ex: Ankle pumps, Heel Slides Supine Reps: 20 (PROM) Seated Therapy Exercises: Long arc quads Seated Reps: 20 Assessment Patient is currently unable to actively participate with PT and is requiring dependent assist x 2 with all mobility. Patient will require extended care facility from a PT standpoint. PT Short Term Goals Short Term Goals Time Frame: Nov 18, 2016 Transfers (B,C,W/C) (FIM): 3 Gait (FIM): 2 Distance (FIM): 1=up to 49 ft Gait Distance Comment: steps Gait Assistive Device: Walker Platform PT Plan Treatment/Plan Treatment Plan: Continue Plan of Care Treatment Plan: Bed Mobility, Education, Functional Activity [place], Functional Strength, Gait, Safety, Therapeutic Exercise, Transfers Treatment Duration: Nov 18, 2016 Visits Per Week: 11-12 Time/GCodes Time In: 830 Time Out: 845 Total Billed Treatment Time: 15 Total Billed Treatment 1 visit FA 15 min PORTER JOY PT Nov 14, 2016 09:14
[2016-11-14] MEDS: cefTRIAXone INJECTION 1,000 MG in NS (IVPB) 50 ML IV SCH (09:25)
[2016-11-14] MEDS: inSUlin DETERMIR 1 UNIT/0.01 ML (LEVEMIR) CHARGE PER UNIT SQ SCH ×2 (09:26→21:16)
[2016-11-14] MEDS: SERTRALINE 50 MG (ZOLOFT) TABLET PO SCH (09:26)
[2016-11-14] MEDS: LORazepam 0.5 MG (ATIVAN) TABLET PO SCH ×2 (09:26→20:17)
--- NOTE | 2016-11-14 09:47 | ECHOCARDIOGRAPHY REPORT ---
PROCEDURE PHYSICIAN: JACQUELINE BOOGIE DATE OF PROCEDURE: 11/13/2016 TWO DIMENSIONAL ECHOCARDIOGRAM REPORT PRIMARY PHYSICIAN: Dr. Landeros OTHER PHYSICIAN: REFERRING PHYSICIAN: ORDERING PHYSICIAN: Dr. Amanda Boogie ATTENDING PHYSICIAN: Dr. Andrea Crockett FAMILY PHYSICIAN: READING PHYSICIAN: INDICATION FOR THE PROCEDURE: 1. Fall. 2. Left hip fracture. 3. Cardia murmur. MEASUREMENTS DERIVED VALUES LV DIAMETER (LAX) NORMALS NORMALS Diastolic (3.6-5.2) Eject. Fract. (60%+/-6%) Systolic (2.3-3.9) Diastolic Vol. % Shortening (0.22-0.42) Systolic Vol. Aortic Root IVS THICKNESS Diastolic (0.6-1.1) LVPW THICKNESS Diastolic (0.6-1.1) LA DIAMETER Systolic (2.1-3.7) FINDINGS: 1. Sinus rhythm. 2. Normal left atrial size and normal left ventricle. 3. Normal aortic root. 4. LV systolic function is normal with an EF of 60 to 70%. There is no wall motion abnormality. 5. Normal RV size and function. 6. IVC is 1.2 cm. 7. There is mild pericardial effusion. 8. Mild diastolic dysfunction is present. VALVULAR HEART STRUCTURE: This was a technically difficult study due to the left fractured hip and left fractured arm with recent surgery; therefore the patient was not able to hold breath or do Valsalva. However, moderate tricuspid regurgitation was noted with an RVSP of 65 mmHg. There was trace pulmonic regurgitation. There was at least moderate mitral regurgitation; however, the velocities were significantly elevated which could suggest moderate to severe mitral regurgitation. There was significant aortic valve sclerosis noted with an aortic valve area of 1.7 cm sq by maximum velocity. However, by Doppler gradient, the maximum gradient was found to be 110 mmHg and mean gradient of 52 mmHg. This in my opinion is an over estimation due to possible contamination with the mitral envelope velocities or with systolic anterior motion of the mitral valve leaflet and associated turbulence in the LVOT secondary to possible LVOT obstruction. CONCLUSION: 1. Normal LV size and function. 2. Normal RV size and function. 3. Moderate tricuspid regurgitation with at least moderate pulmonary hypertension. 4. Difficult to discern the severity of aortic stenosis. By Doppler gradient, it seems that aortic stenosis is severe; however, by aortic valve area and 2D imaging, severe aortic stenosis is unlikely. This may be likely due to either LVOT obstruction with systolic anterior movement of the mitral leaflet. This could also be due to contamination of mitral valve velocities. 5. Possibility of moderate to severe mitral regurgitation. This was a technically difficult study because of recent hip surgery and patient could not hold her breath or do Valsalva. Therefore, it was difficult to accurately discern degree of valvular heart disease, especially severity of aortic stenosis and mitral regurgitation. Therefore transesophageal echocardiogram is recommended when the patient is more stable. Job ID: [id number] Dictated Date: 11/13/2016 20:17:39 Regional Account Director Date: 11/14/2016 09:20:45 / theo SANDHU
--- NOTE | 2016-11-14 10:55 | Progress Note-Hospitalist ---
Progress Note HPI/CC on Admission CC: Left hip fracture w/left radius fracture HPI: This is a 71yoWF that had a fall at home, resulting in current fracture which be repaired today. parent trainer: RN states that pt will go to OR soon. Patient Interview: Pt states that she has not had a hip fracture before. Pt's PCP is Dr. Landeros at [facility], although pt had difficulty remembering this. I review prior records and it appears that she does have cognitive decline so minimal details obtained Physical exam stable. Scribed by [place] under the direct supervision of Dr. Gama. Progress Notes/Assess & Plan Date Seen 11/14/16 Admission Dx/Process Assessment: Acute left hip fracture with left radius fracture in need of repair today by Dr. Keira Loyola Acute UTI Diabetes mellitus COPD CHF HTN CRI Poor recall with cognitive decline appears chronic Diagonsis/Assessment & Plan Chart Review: UCx E. coli - on Rocephin Max fever 99.9 Vitals stable BP 168/72 WBC 12.3 Hgb 10.6 after 2 units of blood Blood sugars much improved at 145 parent trainer: Pt did not work well with PT this morning. RN states that Dr. Boogie stated that pt will need a JOVANA at some point, but will likely be unable to obtain this now. Pt came from [place]. Patient Interview: Pt states that she feels better today. Pt states she is having regular BMs. Pt states that she wears O2 continuously at home. Physical exam stable. Pt states that she has been using IS. Pt has no requests at this time. no fever, vital signs stable, pleasant, chronically ill, frail Regular rate and rhythm, clear to auscultation bilaterally but diminished in the bases no edema Laboratory Tests 11/14/16 04:40 Assessment: Acute left hip fracture with left radius fracture repair POD # 2 Postop anemia due to blood loss s/p 2 units of blood [place] Acute UTI Diabetes mellitus COPD CHF HTN CRI Poor recall with cognitive decline appears chronic Plan: TX arrangements for tomorrow Palliative care since prognosis is very poor Check labs Zofran for nausea Monitor COPD Rocephin for UTI Monitor for delirium Scribed by [place] under the direct supervision of Dr. Gama. JAMES GAMA DO Nov 14, 2016 10:55 Scribed by [place] under the direct supervision of Dr. Gama. JAMES GAMA DO Nov 14, 2016 10:55
[2016-11-14 12:00] VITALS: BP 162/82
[2016-11-14] MEDS ORDERED: LORA0.5T PO (12:04)
[2016-11-14] MEDS ORDERED: OXYC-471 PO (12:04)
[2016-11-14] MEDS ORDERED: AMOX500T2 PO (12:04)
[2016-11-14] MEDS ORDERED: TRAM50TA2 PO (12:04)
--- NOTE | 2016-11-14 12:05 | Discharge Inst-Skilled Nursing ---
Discharge Inst-Skilled NF Chief Complaint CC: Left hip fracture w/left radius fracture HPI: This is a 71yoWF that had a fall at home, resulting in current fracture which be repaired today. photographic spotter: RN states that pt will go to OR soon. Patient Interview: Pt states that she has not had a hip fracture before. Pt's PCP is Dr. Landeros at [facility], although pt had difficulty remembering this. I review prior records and it appears that she does have cognitive decline so minimal details obtained Physical exam stable. Scribed by [place] under the direct supervision of Dr. Jose. Patient Instructions Patient Problems: left hip fracture Severe COPD Diabetes mellitus brittle Dementia Goal: return to independence with ADLs Consult/Follow Up/Orders Follow Up Appt.: [facility] on [place] rounds Skilled NF Admit to: Certification (SNF) I certify that SNF services are required to be given on an inpatient basis because of the above named patient's need for intermediate care on a continuing basis for the conditions(s) for which he/she was receiving inpatient hospital services prior to his/her transfer to the SNF. Care Home Facility Order: Nursing Services, Mate Chief-Evaluate & Treat, Physical Therapy-Evaluate & Treat, Speech Language-Evaluate & Treat Discharge Diet: ADA Diet Daily Activity as Tolerated: Yes New & Resume Previous Orders Gila Jose Nov 14, 2016 12:04 Pneu Vac Indicated: Yes GILA JOSE DO Nov 14, 2016 12:05
--- NOTE | 2016-11-14 13:58 | Physical Therapy Daily Note ---
PT Daily Note-Current Subjective Patient is in bed. Declined OOB. Pain Numeric Pain Scale: 10-Worst Possible Pain Location: Left Location Body Site: Hip Comment: FLACC Appearance Patient is rigid with all attempt to perform ROM with left LE and moans with movement. Mental Status Patient Orientation: Unable to Assess Attachments: Oxygen Transfers Functional [place] Measure 0=Not Assessed/NA 4=Minimal Assistance 1=Total Assistance 5=Supervision or Setup 2=Maximal Assistance 6=Modified [place] 3=Moderate Assistance 7=Complete IndependenceIRFPAI Quality Coding Scale 6 Independent with activity with or without an assistive device 5 Patient requires set up or clean up by helper. Patient completes activity by themselves 4 Supervision or touching assist (CGA). [place] provide cues , steadying assist 3 The helper provides less than half the effort to complete the activity 2 The helper provides more than half the effort to complete the activity 1 Dependent. The helper does all the effort to complete an activity 7 Patient refused to complete or attempt activity 9 The patient did not perform the activity before the current illness or injury 88 Not attempted due to Medical conditions or safety concerns Transfers (B, C, W/C) (FIM): 1 Scootin Rollin Patient incontinent urine and required dependent assist to cleanse and change. Rolling activity with ROM performed during this task. Weight Bearing Weight Bearing Restriction: Touch Toe Bearing Location Restriction: L LE Exercises Supine Ex: Ankle pumps, Heel Slides, Straight leg raise, Hip abd/add (mild ROM) Supine Reps: 10 Assessment Patient tolerates minimal ROM activity with rolling side to side to assist with bed change. From a PT standpoint, this patient will require chcf care to ensure full recovery. PT Short Term Goals Short Term Goals Time Frame: Nov 18, 2016 Transfers (B,C,W/C) (FIM): 3 Gait (FIM): 2 Distance (FIM): 1=up to 49 ft Gait Distance Comment: steps Gait Assistive Device: Walker Platform PT Plan Treatment/Plan Treatment Plan: Continue Plan of Care Treatment Plan: Bed Mobility, Education, Functional Activity [place], Functional Strength, Gait, Safety, Therapeutic Exercise, Transfers Treatment Duration: Nov 18, 2016 Visits Per Week: 11-12 Discharge Recommendations Therapy D/C Recommendations: [facility] Placement Time/GCodes Time In: 1325 Time Out: 1350 Total Billed Treatment Time: 25 Total Billed Treatment 1 visit FA x 2 25 min PORTER JOY PT Nov 14, 2016 13:58
[2016-11-14 15:35] VITALS: BP 176/77
--- NOTE | 2016-11-14 15:47 | Cardiology Progress Note ---
Cardiology SOAP Progress Note Subjective: no complaints Objective: I&O/Vital Signs Vital Sign - Last 12Hours 11/14/16 11/14/16 11/14/16 11/14/16 04:00 08:13 08:26 09:00 Temp 98.8 98.9 Pulse 83 89 Resp 24 22 B/P 187/80 168/72 Pulse Ox 97 99 95 O2 Delivery High Flow NC High Flow NC High Flow NC O2 Flow Rate 4.00 4.00 4.00 4.00 11/14/16 12:00 Temp 98.0 Pulse 84 Resp 20 B/P 162/82 Pulse Ox 98 O2 Delivery High Flow NC O2 Flow Rate 4.00 Intake and Output 11/13/16 23:59 Intake Total 1060 ml Output Total 200 ml Balance 860 ml Weight (Pounds): 135 Weight (Ounces): 0.0 Weight (Calculated Kilograms): [id number] Constitutional: No appears stated age, No AAO x 3, No apparent distress, No PERRL, No well-developed, No well-nourished, No other Respiratory: No accessory muscle use, No respiratory distress, No chest tender , No chest expansion is symmetric, No chest is bilaterally symmetric, No lungs clear to percussion, No lungs clear to auscultation, No crackles, No rhonchi, No rales, No stridor, No wheezing, No pleural rub, No other Cardiovascular: No regular rate-rhythm, No irregularly irregular, No extra beats, No parasternal heave is noted, No JVD, No edema, No bradycardia, No tachycardia, No point of maximal impulse, No cardiac thrills are palpable, No S1 and S2, No gallop/S3, No gallop/S4, No diastolic murmur, systolic murmurNo friction rub, No click, No other Gastrointestional: No tender, No soft, No round, No distended, No pulsatile mass, No organomegaly, No guarding, No rebound, No tenderness, No hernia, No mass, No audible bowel sounds, No abnormal bowel sounds, No abdominal bruits, No spleenomegaly, No other Extremities: No normal inspection, No pedal edema, No calf tenderness, No normal capillary refill, No calf tenderness, No inflammation, No pedal edema, No slow capillary refill, No swelling, No other, No abrasion, No clubbing, No cyanosis, No ecchymosis, No laceration, No no lower extremity edema bilateral, No significant edema, No tenderness, No wound Neurologic/Psychiatric: No pinball machine repairer II-XII nml as tested, No no motor/sensory deficits, No alert, No normal mood/affect, No oriented x 3, No abnormal cerebellar tests, No abnormal pinball machine repairer II-XII, No abnormal gait, No aphasia, No EOM palsy, No facial droop, No motor weakness, No sensory deficit, No depressed affect, No disoriented x 3, No other, No grossly intact, No power is 5/5 both on sides Skin: No normal color, No warm/dry, No cyanosis, No cool, No diaphoresis, No damp, No ecchymosis, No jaundice, No mottled, No pallor, No rash, No tattoos/ piercings, No ulcerations, No rash on exposed areas, No ulcerations on exposed areas, No other Results/Procedures: Labs Laboratory Tests 11/13/16 20:47: Glucometer 96 11/14/16 04:40: Alanine Aminotransferase (ALT/SGPT) 14, Albumin 3.2, Alkaline Phosphatase 82, Anion Gap 9, Aspartate Amino Transf (AST/SGOT) 37H, BUN/Creatinine Ratio 20, Basophils # (Auto) 0.1, Basophils (%) (Auto) 0, Blood Urea Nitrogen 17, Calcium Level 8.5, Carbon Dioxide Level 25, Chloride Level 105, Creatinine 0.86, Eosinophils # (Auto) 0.4H, Eosinophils (%) (Auto) 3, Estimat Glomerular Filtration Rate > 60, Glucose Level 145H, Hematocrit 32L, Hemoglobin 10.6#L, Lymphocytes # (Auto) 1.0, Lymphocytes (%) (Auto) 8L, Mean Corpuscular Hemoglobin 28, Mean Corpuscular Hemoglobin Concent 33, Mean Corpuscular Volume 84, Mean Platelet Volume 12.0H, Monocytes # (Auto) 1.3H, Monocytes (%) (Auto) 10 , Neutrophils # (Auto) 9.6H, Neutrophils (%) (Auto) 78H, Platelet Count 163, Potassium Level 3.7, Red Blood Count 3.79L, Red Cell Distribution Width 15.2H, Sodium Level 139, Total Bilirubin 0.6, Total Protein 5.9L, White Blood Count 12.3H 11/14/16 11:16: Glucometer 317H Microbiology 11/12/16 MRSA Screen - Final, Complete MRSA not isolated 11/12/16 Urine Culture - Final, Complete Escherichia Coli A/P: Assessment/Dx: Mechanical fall, systolic murmur. Plan: technically difficult echocardiogram due to postoperative condition. on echocardiogram patient likely has at least moderate mitral regurgitation, aortic stenosis. Severity of mitral regurgitation and aortic stenosis could not be accurately discerned. There is a possibility of a sigmoid hypertrophy septum causing LVOT turbulence/obstruction with systolic anterior motion of the anterior mitral leaflet. Therefore transesophageal echocardiogram is recommended when she is more stable and will be able to cooperate with an invasive echocardiogram. This can be done just before discharge or even as an outpatient. Cardiology follow-up is recommended at that point in time. Please let us know when the patient is close to follow-up so that we can see if a transesophageal echocardiogram can be arranged. Thank you for your consultation. Please call me if you have any questions. Amanda Boogie MD, FACP, FACC, FSCAI, FHRS, CCDS Interventional Cardiology Cardiac Electrophysiology Vascular Medicine and Endovascular Interventions Claribel BOOGIE MD Nov 14, 2016 15:46
[2016-11-14] MEDS: ACETAMINOPHEN 500 MG TAB (TYLENOL) PO PRN (16:27)
[2016-11-14 20:15] VITALS: BP 160/74
[2016-11-14] MEDS: meTOprolol TARTRATE 25 MG (LOPRESSOR) TABLET PO SCH (20:17)
[2016-11-15] VITALS: BP 145/79
[2016-11-15 04:00] VITALS: BP 151/72
[2016-11-15] MEDS: inSUlin ASPART (NovoLOG) 1 UNIT/0.01 ML (CHARGE PER UNIT) SC SCH ×3 (06:00→16:00)
[2016-11-15] MEDS: PANTOPRAZOLE 20 MG TABLET (PROTONIX) PO SCH (06:34)
[2016-11-15] MEDS: RT-ADVAIR HFA 115/21 MCG PER PUFF IH SCH ×2 (07:50→20:01)
[2016-11-15] MEDS: UMECLIDINIUM BROMIDE (INCRUSE ELLIPTA) 7'S IH SCH (07:51)
[2016-11-15 08:00] VITALS: BP 181/94
--- NOTE | 2016-11-15 09:23 | Progress Note-Standard ---
Standard Progress Note Progress Notes/Assess & Plan Progress/Assessment & Plan No complaints Vital Signs Date Time Temp Pulse Resp B/P Pulse Ox O2 Delivery O2 Flow Rate FiO2 11/13/16 04:00 97.2 77 18 164/68 94 Nasal Cannula 4.50 11/13/16 00:00 96.9 80 18 146/59 96 Nasal Cannula 4.50 11/12/16 21:00 High Flow NC 3.00 11/12/16 20:02 93 3.00 11/12/16 20:00 99.1 103 20 112/59 94 Nasal Cannula 4.50 11/12/16 16:00 98.0 95 16 119/71 91 Nasal Cannula 4.50 11/12/16 10:15 91 Nasal Cannula 3.00 11/12/16 10:10 156/73 11/12/16 10:10 3.00 11/12/16 09:51 97.9 75 14 97 2 11/12/16 09:03 97.9 78 14 201/86 97 Nasal Cannula I & O 11/13/16 07:00 Intake Total 3310 ml Output Total 2465 ml Balance 845 ml Laboratory Tests Test 11/12/16 08:27 11/12/16 18:57 11/12/16 20:41 11/13/16 04:44 Range/Units Urine Bacteria LARGE H /HPF Urine Bilirubin NEGATIVE NEGATIVE Urine Casts NONE /LPF Urine Clarity CLEAR Urine Color YELLOW Urine Crystals NONE /LPF Urine Culture Indicated YES Urine Glucose (UA) 4+ H NEGATIVE Urine Ketones 1+ H NEGATIVE Urine Leukocyte Esterase 3+ H NEGATIVE Urine Mucus NEGATIVE /LPF Urine Nitrite NEGATIVE NEGATIVE Urine Protein 2+ H NEGATIVE Urine RBC 0-2 /HPF Urine RBC (Auto) 2+ H NEGATIVE Urine Specific [place] 1.010 L 1.016-1.022 Urine Squamous Epithelial Cells 2-5 /HPF Urine Urobilinogen NORMAL NORMAL MG/DL Urine WBC 25-50 H /HPF Urine pH 7 5-9 Glucose Level 685 *H 70-105 MG/DL Glucometer 479 *H 40 *L 70-110 MG/DL Test 11/13/16 05:07 11/13/16 05:34 Range/Units Glucometer 53 *L 127 H 70-110 MG/DL L hip dressing intact. Intact DF and PF of toes and ankle. Brisk cap refill L UE splint in place. Intact MCP flex/ext/abduction s/p ORIF L hip and L wrist mobilize will likely require NH placement Final Diagnosis No complaints Laboratory Tests Test 11/14/16 11:16 11/14/16 16:03 11/14/16 21:13 11/15/16 05:00 Range/Units Glucometer 317 H 205 H 244 H 70-110 MG/DL Hematocrit 33 L 35-52 % Hemoglobin 10.5 L 11.5-16.0 G/DL Test 11/15/16 06:40 Range/Units Glucometer 91 70-110 MG/DL Vital Signs Date Time Temp Pulse Resp B/P Pulse Ox O2 Delivery O2 Flow Rate FiO2 11/15/16 08:00 98.1 67 22 181/94 99 High Flow NC 4.00 11/15/16 07:51 93 4.00 11/15/16 04:00 98.2 70 20 151/72 100 High Flow NC 4.00 11/15/16 00:00 97.1 82 18 145/79 99 High Flow NC 3.00 11/14/16 21:00 High Flow NC 4.00 11/14/16 20:30 92 4.00 11/14/16 20:15 98.5 106 24 160/74 95 High Flow NC 3.00 11/14/16 15:35 98.9 92 20 176/77 94 High Flow NC 4.00 11/14/16 12:00 98.0 84 20 162/82 98 High Flow NC 4.00 I & O 11/15/16 07:00 Intake Total 950 ml Output Total 550 ml Balance 400 ml LLE--dressing intact. No calf tenderness LUE splint in place s/p L hip ORIF and L wrist PCP await NH placement MATA EDGAR MD Nov 15, 2016 09:23
[2016-11-15] MEDS: LORazepam 0.5 MG (ATIVAN) TABLET PO SCH ×2 (10:03→20:26)
[2016-11-15] MEDS: cefTRIAXone INJECTION 1,000 MG in NS (IVPB) 50 ML IV SCH (10:03)
[2016-11-15] MEDS: SERTRALINE 50 MG (ZOLOFT) TABLET PO SCH (10:04)
[2016-11-15] MEDS: inSUlin DETERMIR 1 UNIT/0.01 ML (LEVEMIR) CHARGE PER UNIT SQ SCH ×2 (10:04→20:34)
--- NOTE | 2016-11-15 10:43 | Progress Note-Hospitalist ---
Progress Note HPI/CC on Admission CC: Left hip fracture w/left radius fracture HPI: This is a 71yoWF that had a fall at home, resulting in current fracture which be repaired today. 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 Patient Interview: Pt states that she has not had a hip fracture before. Pt's PCP is Dr. Landeros at [facility], although pt had difficulty remembering this. I review prior records and it appears that she does have cognitive decline so minimal details obtained Physical exam stable. Scribed by [place] under the direct supervision of Dr. Gama. Progress Notes/Assess & Plan Date Seen 11/15/16 Admission Dx/Process Assessment: Acute left hip fracture with left radius fracture in need of repair today by Dr. Keira Loyola Acute UTI Diabetes mellitus COPD CHF HTN CRI Poor recall with cognitive decline appears chronic Diagonsis/Assessment & Plan Patient doing well and disposition on Thursday Denies any pain Reports she is having regular bowel movements No shortness of breath Glucose improved but blood pressure is labile no fever, vital signs stable, pleasant, chronically ill, frail Regular rate and rhythm, clear to auscultation bilaterally but diminished in the bases no edema Assessment: Acute left hip fracture with left radius fracture repair POD # 3 Postop anemia due to blood loss s/p 2 units of blood [place] Acute UTI Diabetes mellitus COPD CHF HTN CRI Poor recall with cognitive decline appears chronic Plan: [place] arrangements for Thursday Palliative care since prognosis is very poor Check labs Zofran for nausea Monitor COPD Rocephin for UTI Monitor for delirium Scribed by [place] under the direct supervision of Dr. Gama. JAMES GAMA DO Nov 15, 2016 10:43
--- NOTE | 2016-11-15 11:13 | Physical Therapy Daily Note ---
PT Daily Note-Current Subjective Agrees to PT. Speaks very softly. Transfers Functional [place] Measure 0=Not Assessed/NA 4=Minimal Assistance 1=Total Assistance 5=Supervision or Setup 2=Maximal Assistance 6=Modified [place] 3=Moderate Assistance 7=Complete IndependenceIRFPAI Quality Coding Scale 6 Independent with activity with or without an assistive device 5 Patient requires set up or clean up by helper. Patient completes activity by themselves 4 Supervision or touching assist (CGA). [place] provide cues , steadying assist 3 The helper provides less than half the effort to complete the activity 2 The helper provides more than half the effort to complete the activity 1 Dependent. The helper does all the effort to complete an activity 7 Patient refused to complete or attempt activity 9 The patient did not perform the activity before the current illness or injury 88 Not attempted due to Medical conditions or safety concerns Pt transferred sup to sit EOB with max assist. Pt able to attempt to participate with transfer but only moves legs very small movements, attempts to sit her trunk up but is not strong enough to do so effectively, therefore needed max assist. Sit to stand x 1 with FWW platform with max assist--unable to come to full stand but was not putting full weight on left LE. Pt then assisted by this therapist with dance style sit to stand and turn to the chair requiring dep assist for the transfer. Again, pt unable to fully maintain TTWB on the left but is not putting full weight on it. Pt in chair post treatment with oxygen in situ and chair alarm acitivated. Attempted to get patient to perfrom ther ex but did seem able to follow cues to participate. Nursing aware that patient is in the chair. Weight Bearing Weight Bearing Restriction: Touch Toe Bearing Location Restriction: L LE Assessment Current Status: Fair Progress Pt pleasant and cooperative, just has limited ability to effectively participate in the treatment; however, she is better than when last seen by this therapist. She will likely need longterm care with extended rehab to progress her functional mobility. TTWB is definately a barrier and will slow her progress. PT Short Term Goals Short Term Goals Time Frame: Nov 18, 2016 Transfers (B,C,W/C) (FIM): 3 Gait (FIM): 2 Distance (FIM): 1=up to 49 ft Gait Distance Comment: steps Gait Assistive Device: Walker Platform PT Plan Problem List Problem List: Activity Tolerance, Functional Strength, Safety, Balance, Gait, Transfer, Bed Mobility Treatment/Plan Treatment Plan: Continue Plan of Care Treatment Plan: Bed Mobility, Education, Functional Activity [place], Functional Strength, Gait, Safety, Therapeutic Exercise, Transfers Treatment Duration: Nov 18, 2016 Visits Per Week: 11-12 Safety Risks/Education Patient Education: Transfer Techniques Teaching Recipient: Patient Teaching Methods: Demonstration, Discussion Response to Teaching: Reinforcement Needed Time/GCodes Time In: 1035 Time Out: 1100 Total Billed Treatment Time: 25 Total Billed Treatment visit FA 25 YOSHI CHASE PT Nov 15, 2016 11:13
[2016-11-15 12:00] VITALS: BP 156/76
[2016-11-15] MEDS: ACETAMINOPHEN 500 MG TAB (TYLENOL) PO PRN (14:35)
[2016-11-15 16:49] VITALS: BP 141/75
[2016-11-15 20:01] VITALS: BP 159/74
[2016-11-15] MEDS: meTOprolol TARTRATE 25 MG (LOPRESSOR) TABLET PO SCH (20:25)
[2016-11-16] VITALS: BP 187/104
[2016-11-16] MEDS ORDERED: NITROGLYCERIN 2% OINT 1 GM UNIT DOSE PACKET TOP ONE (00:45)
[2016-11-16 03:15] VITALS: BP 166/75
[2016-11-16] MEDS: inSUlin ASPART (NovoLOG) 1 UNIT/0.01 ML (CHARGE PER UNIT) SC SCH ×3 (05:13→16:00)
[2016-11-16] MEDS: PANTOPRAZOLE 20 MG TABLET (PROTONIX) PO SCH (05:16)
[2016-11-16] MEDS: ACETAMINOPHEN 500 MG TAB (TYLENOL) PO PRN (05:16)
[2016-11-16] MEDS: RT-ADVAIR HFA 115/21 MCG PER PUFF IH SCH ×2 (07:03→19:18)
[2016-11-16] MEDS: UMECLIDINIUM BROMIDE (INCRUSE ELLIPTA) 7'S IH SCH (07:04)
[2016-11-16 08:00] VITALS: BP 117/97
--- NOTE | 2016-11-16 08:27 | Progress Note-Standard ---
Standard Progress Note Progress Notes/Assess & Plan Progress/Assessment & Plan POD4 Pt. reports no c/O. Denies pain. Afebrile, TMAX 98.2 VSS, H&H 11.2 and 34. Lt. Hip incision clean and dry and well approx. with no warmth, erythema or drainage. Bilat. calves soft and nontender. Intact PF, DF and EHL. LUE fingers demonstrate no swelling. ROM intact and sensation intact to light touch. A: Doing well S/P ORIF Lt. hip and Percutaneous pin fixation Lt. wrist P: Mobilize DVT prophylaxis continue splint To NH tomorrow MICHEL ESPINAL Nov 16, 2016 08:27
[2016-11-16] MEDS: LORazepam 0.5 MG (ATIVAN) TABLET PO SCH ×2 (09:09→20:34)
[2016-11-16] MEDS: inSUlin DETERMIR 1 UNIT/0.01 ML (LEVEMIR) CHARGE PER UNIT SQ SCH ×2 (09:09→21:06)
[2016-11-16] MEDS: SERTRALINE 50 MG (ZOLOFT) TABLET PO SCH (09:09)
[2016-11-16] MEDS: amLODIPine 5 MG (NORVASC) TAB PO SCH (09:54)
--- NOTE | 2016-11-16 11:20 | Progress Note-Hospitalist ---
Progress Note HPI/CC on Admission CC: Left hip fracture w/left radius fracture HPI: This is a 71yoWF that had a fall at home, resulting in current fracture which be repaired today. 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 Patient Interview: Pt states that she has not had a hip fracture before. Pt's PCP is Dr. Landeros at [facility], although pt had difficulty remembering this. I review prior records and it appears that she does have cognitive decline so minimal details obtained Physical exam stable. Scribed by [place] under the direct supervision of Dr. Gama. Progress Notes/Assess & Plan Date Seen 11/16/16 Admission Dx/Process Assessment: Acute left hip fracture with left radius fracture in need of repair today by Dr. Keira Loyola Acute UTI Diabetes mellitus COPD CHF HTN CRI Poor recall with cognitive decline appears chronic Diagonsis/Assessment & Plan Patient doing well and disposition on Thursday to [facility] Denies any pain Reports she is having regular bowel movements No shortness of breath Glucose improved but blood pressure is labile so added NTG paste prn and Norvasc 5mg now no fever, vital signs stable, pleasant, chronically ill, frail Regular rate and rhythm, clear to auscultation bilaterally but diminished in the bases no edema Laboratory Tests 11/16/16 05:20 Assessment: Acute left hip fracture with left radius fracture repair POD # 4 Postop anemia due to blood loss s/p 2 units of blood [place] Acute UTI Diabetes mellitus COPD CHF HTN OOC CRI Poor recall with cognitive decline appears chronic Plan: [place] arrangements [place] Palliative care since prognosis is very poor Zofran for nausea Monitor COPD Rocephin for UTI DC since completed treatment Monitor for delirium JAMES GAMA DO Nov 16, 2016 11:20
[2016-11-16 12:00] VITALS: BP 138/72
[2016-11-16 16:09] VITALS: BP 120/65
[2016-11-16 19:47] VITALS: BP 133/68
[2016-11-16] MEDS: meTOprolol TARTRATE 25 MG (LOPRESSOR) TABLET PO SCH (20:34)
[2016-11-17] VITALS: BP 152/81
[2016-11-17] MEDS: PANTOPRAZOLE 20 MG TABLET (PROTONIX) PO SCH (06:49)
[2016-11-17] MEDS: inSUlin ASPART (NovoLOG) 1 UNIT/0.01 ML (CHARGE PER UNIT) SC SCH ×2 (06:49→11:00)
[2016-11-17 08:00] VITALS: BP 138/71
[2016-11-17] MEDS: RT-ADVAIR HFA 115/21 MCG PER PUFF IH SCH (08:05)
[2016-11-17] MEDS: UMECLIDINIUM BROMIDE (INCRUSE ELLIPTA) 7'S IH SCH (08:08)
[2016-11-17] MEDS: SERTRALINE 50 MG (ZOLOFT) TABLET PO SCH (08:39)
[2016-11-17] MEDS: inSUlin DETERMIR 1 UNIT/0.01 ML (LEVEMIR) CHARGE PER UNIT SQ SCH (08:39)
[2016-11-17] MEDS: LORazepam 0.5 MG (ATIVAN) TABLET PO SCH (08:39)
[2016-11-17] MEDS: amLODIPine 5 MG (NORVASC) TAB PO SCH (08:39)
--- NOTE | 2016-11-17 10:07 | Physical Therapy Daily Note ---
PT Daily Note-Current Subjective Patient is in bed and will not verbally respond to PT. Pain Numeric Pain Scale: 10-Worst Possible Pain Location: Left Location Body Site: Hip Comment: FLACC Mental Status Patient Orientation: Unable to Assess (patient closes eyes to avoid) Transfers Functional [place] Measure 0=Not Assessed/NA 4=Minimal Assistance 1=Total Assistance 5=Supervision or Setup 2=Maximal Assistance 6=Modified [place] 3=Moderate Assistance 7=Complete IndependenceIRFPAI Quality Coding Scale 6 Independent with activity with or without an assistive device 5 Patient requires set up or clean up by helper. Patient completes activity by themselves 4 Supervision or touching assist (CGA). [place] provide cues , steadying assist 3 The helper provides less than half the effort to complete the activity 2 The helper provides more than half the effort to complete the activity 1 Dependent. The helper does all the effort to complete an activity 7 Patient refused to complete or attempt activity 9 The patient did not perform the activity before the current illness or injury 88 Not attempted due to Medical conditions or safety concerns Exercises Supine Ex: Ankle pumps, Heel Slides, Straight leg raise, Hip abd/add Supine Reps: 15 (x 2 sets PROM) Assessment Patient did not respond to PT during treatment. Patient closed her eyes. Patient is not actively participating with therapy at this time. Plan dismissal to [place] for continued care and rehab. PT Short Term Goals Short Term Goals Time Frame: Nov 18, 2016 Transfers (B,C,W/C) (FIM): 3 Gait (FIM): 2 Distance (FIM): 1=up to 49 ft Gait Distance Comment: steps Gait Assistive Device: Walker Platform PT Plan Treatment/Plan Treatment Plan: Continue Plan of Care Treatment Plan: Bed Mobility, Education, Functional Activity [place], Functional Strength, Gait, Safety, Therapeutic Exercise, Transfers Treatment Duration: Nov 18, 2016 Visits Per Week: 11-12 Time/GCodes Time In: 950 Time Out: 1005 Total Billed Treatment Time: 15 Total Billed Treatment 1 visit EX 15 min PORTER JOY PT Nov 17, 2016 10:07
--- NOTE | 2016-11-17 11:07 | Progress Note (SOAP) ---
Subjective Subjective/Events-last exam Patient medically stable and has been accepted by [facility] in [place]. Date seen by provider: Nov 17, 2016 Objective Exam Last Set of Vital Signs Vital Signs Date Time Temp Pulse Resp B/P Pulse Ox O2 Delivery O2 Flow Rate FiO2 11/17/16 08:09 97 4.00 11/17/16 08:00 99.1 79 16 138/71 High Flow NC Capillary Refill : Less Than 3 SecondsLess Than 3 Seconds I&O Intake and Output 11/17/16 00:00 Intake Total 860 ml Balance 860 ml Intake Oral 860 ml # Voids 6 # Urine Diapers 2 # Bowel Movements 2 General: Alert, Cooperative, No Acute Distress Heart: Regular Rate (Systolic Murmur) Abdomen: Normal Bowel Sounds, Soft, No Tenderness Extremities: No Tenderness/Swelling Skin: No Rashes, No Breakdown Results/Procedures Lab Laboratory Tests 11/16/16 11:17: Glucometer 327H 11/16/16 16:12: Glucometer 95 11/16/16 21:01: Glucometer 364H 11/17/16 05:15: Glucometer 219H Microbiology 11/12/16 MRSA Screen - Final, Complete MRSA not isolated 11/12/16 Urine Culture - Final, Complete Escherichia Coli Assessment/Plan Assessment/Plan Plan See D/c Summ Diagnosis/Problems: Clinical Quality Measures DVT/VTE Risk/Contraindication: Risk Factor Score Per Nursin RFS Level Per Nursing on Admit: 4+=Very High NEELA ALLEN MD Nov 17, 2016 11:07
--- NOTE | 2016-11-17 11:13 | Discharge Summary ---
Diagnosis/Chief Complaint Date of Admission Nov 12, 2016 at 08:00 Date of Discharge 11/17/16 Admission Diagnosis Admission Diagnosis Acute left hip fracture with left radius fracture in need of repair today by Dr. Keira Loyola Acute UTI: Treatment completed Diabetes mellitus COPD CHF HTN CRI Discharge Diagnosis See Above Chief Complaint/HPI Chief Complaint/HPI Admitted from the ER following a fall after it revealed a hip fracture. Patient fell from standing position onto her left hip and wrist. Fractures present in both. Pain well controlled in ER. Discharge Summary-Simple/Stand Procedures ORIF Left hip Consultations Ortho Discharge Physical Examination Allergies: Coded Allergies: No Known Drug Allergies (Unverified , 02/12/11) Vitals & I&Os Vital Sign - Last 12Hours Date Time Temp Pulse Resp B/P Pulse Ox O2 Delivery O2 Flow Rate FiO2 11/17/16 08:09 97 4.00 11/17/16 08:00 99.1 79 16 138/71 High Flow NC Intake and Output 11/17/16 00:00 Intake Total 540 ml Balance 540 ml General Appearance: Alert, Cooperative, No Acute Distress, Other (answers simple questions) HEENT: Atraumatic, PERRLA, EOMI, Mucous Memb Moist/[place] Respiratory: Clear to Auscultation, Normal Air Movement Cardiovascular: Regular Rate, Other (systolic murmur present) Abdominal: Normal Bowel Sounds, Soft, No Tenderness, No Hepatosplenomegaly, No Masses Extremities: No Clubbing, No Cyanosis, Normal Pulses, No Tenderness/Swelling Skin: No Rashes, No Breakdown Neuro: Sensation Intact, Cranial Nerves 3-12 NL Psych/Mental Status: Mental Status NL, Mood NL Hospital Course See final discharge diagnosis. Pending Labs None Discussion & Recommendations 71 yo F that underwent ORIF of left hip fracture. Patient was evaluated for rehab and did not qualify. Patient discharged to [place] with anticoagulation and PT orders Discharge Instructions to patient/family Please see electonic discharge instructions given to patient. Discharge Medications Reviewed and agree with Discharge Medication list on patient's Discharge Instruction sheet Clinical Quality Measures DVT/VTE Risk/Contraindication: Risk Factor Score Per Nursin RFS Level Per Nursing on Admit: 4+=Very High Copy Copies To 1: NEELA ALLEN MD, HOLLY R MD Nov 17, 2016 11:13
[2016-11-17 14:15] VITALS: BP 138/71
== END 2016-11-17 14:05 | DRG 481 ==
LOC: EDUNIT# 06:42 → ER 06:44 → ICU 08:00 → UNDOADMIN 08:26 → 4TH 13:46
PROVIDERS: ADMIT Orthopaedic Surgery; ATTEND Orthopaedic Surgery
PROC: 0QS734Z Reposition Left Upper Femur with Internal Fixation Device, Percutaneous Approach (ICD-10-PCS; principal; 2016-11-12 11:06)
PROC: 0PSJ34Z Reposition Left Radius with Internal Fixation Device, Percutaneous Approach (ICD-10-PCS; 2016-11-12 11:06)
DX: S72.142A Displaced intertrochanteric fracture of left femur, initial encounter for closed fracture (principal); S52.532A Colles' fracture of left radius, initial encounter for closed fracture; N39.0 Urinary tract infection, site not specified; D62 Acute posthemorrhagic anemia; I13.0 Hypertensive heart and chronic kidney disease with heart failure and stage 1 through stage 4 chronic kidney disease, or unspecified chronic kidney disease; I50.9 Heart failure, unspecified; Z66 Do not resuscitate; Z51.5 Encounter for palliative care; N18.9 Chronic kidney disease, unspecified; I25.10 Atherosclerotic heart disease of native coronary artery without angina pectoris; J44.9 Chronic obstructive pulmonary disease, unspecified; J45.909 Unspecified asthma, uncomplicated; G47.30 Sleep apnea, unspecified; E11.9 Type 2 diabetes mellitus without complications; E78.00 Pure hypercholesterolemia, unspecified; K21.9 Gastro-esophageal reflux disease without esophagitis; F03.90 Unspecified dementia, unspecified severity, without behavioral disturbance, psychotic disturbance, mood disturbance, and anxiety; F41.9 Anxiety disorder, unspecified; F32.9 Major depressive disorder, single episode, unspecified; Z79.4 Long term (current) use of insulin; W19.XXXA Unspecified fall, initial encounter; Y92.119 Unspecified place in children's home and orphanage as the place of occurrence of the external cause
CPT/HCPCS: 36415; 51702; 70450; 71010; 72125; 72170; 73090; 73130; 73502; 76937; 80053; 81000; 82947; 82962; 83735; 85014; 85018; 85025; 85610; 85730; 86850; 86900; 86901; 86920; 87081; 87088; 87186; 93005; 93041; 93306; 94640; 94664; 94760; 96361; 96374; 96375

== ENCOUNTER 2017-01-18 08:56 | Inpatient (IN) | payer MEDICARE, MEDICAID ==
[~2017-01-18] VITALS: Ht 152.4 cm; Wt 57.2 kg
[2017-01-18] VITALS (12 sets, daily range): BP systolic 96–138; BP diastolic 55–97
[~2017-01-18 08:56] MED LIST changes: +AMOX500T2 PO; +INSU100I29 SQ; +OXYC-471 PO
[2017-01-18] MEDS ORDERED: inSUlin (REGULAR) HUMAN 1 UNIT/0.01 ML (CHARGE PER UNIT) ONE (08:59)
[2017-01-18] MEDS ORDERED: NS IV 1000 ML 1,000 ML IV ONE ×3 (09:03→10:02)
[2017-01-18 09:13] LABS: BASOPHILS # (AUTO) 0.1 10^3/uL (0.0-0.1); BASOPHILS % (AUTO) 0 % (0-10); EOSINOPHILS % (AUTO) 0 % (0-10); LYMPHOCYTES # (AUTO) 1.4 X 10^3 (1.0-4.0); LYMPHOCYTES % (AUTO) 6 % (12-44); MEAN CORPUSCULAR HEMOGLOBIN 29 PG (25-34); MEAN CORPUSCULAR HGB CONC 31 G/DL (32-36); MEAN CORPUSCULAR VOLUME 94 FL (80-99); MEAN PLATELET VOLUME 11.9 FL (7.4-10.4); MONOCYTES # (AUTO) 1.1 X 10^3 (0.0-1.0); MONOCYTES % (AUTO) 5 % (0-12); NEUTROPHILS # (AUTO) 20.3 X 10^3 (1.8-7.8); NEUTROPHILS % (AUTO) 89 % (42-75); PLATELET COUNT 363 10^3/uL (130-400); RED BLOOD COUNT 4.16 10^6/uL (4.35-5.85); RED CELL DISTRIBUTION WIDTH 15.1 % (10.0-14.5); WHITE BLOOD COUNT 22.8 10^3/uL (4.3-11.0)
[2017-01-18] MEDS ORDERED: FAMOTIDINE 20MG/2ML IV (PEPCID) IVP ONE (09:15)
[2017-01-18] MEDS ORDERED: ONDANSETRON 4 MG/2 ML (SDV) Z0FRAN IVP ONE (09:15)
[2017-01-18] MEDS ORDERED: inSUlin (REGULAR) HUMAN 1 UNIT/0.01 ML (CHARGE PER UNIT) IV ONE ×3 (09:15→10:45)
[2017-01-18] MEDS ORDERED: PANTOPRAZOLE 40 MG/10 ML (PROTONIX) VIAL IV ONE (09:15)
[2017-01-18 09:30] LABS: BILIRUBIN,URINE NEGATIVE (NEGATIVE); KETONES,URINE 3+ (NEGATIVE); LEUKOCYTE ESTERASE ,URINE 2+ (NEGATIVE); NITRITE,URINE NEGATIVE (NEGATIVE); PH,URINE 5 (5-9); PROTEIN,URINE 1+ (NEGATIVE); UROBILINOGEN,URINE NORMAL (NORMAL)
[2017-01-18 09:35] LABS: ALBUMIN 3.9 G/DL (3.2-4.5); BILIRUBIN,TOTAL 0.2 MG/DL (0.1-1.0); CREATININE SERUM 2.5 MG/DL (0.60-1.30); POTASSIUM 5.5 MMOL/L (3.6-5.0); TOTAL PROTEIN 6.7 G/DL (6.4-8.2)
[2017-01-18] MEDS ORDERED: PIPERACILLIN SODIUM/TAZOBACTAM 4.5 GM in NS (IVPB) 100 ML IV ONE (09:45)
[2017-01-18 09:48] LABS: ANISOCYTOSIS SLIGHT; BAND NEUTROPHILS 3 %; BASOPHILS % (MANUAL) 0 %; EOSINOPHILS % (MANUAL) 0 %; LYMPHOCYTES % (MANUAL) 5 %; NEUTROPHILS % (MANUAL) 90 %
--- NOTE | 2017-01-18 09:54 | Diagnostic Imaging Report ---
INDICATION: Unresponsive. Comparison with 11/12/2016. FINDINGS: Portable chest again shows cardiomegaly. The lungs are well-aerated. Mild prominence of the interstitial markings noted. There are no consolidated infiltrates. No pleural effusions. No pneumothorax. IMPRESSION: 1. Chronic cardiomegaly. 2. Slight prominence of the interstitial markings on today's exam which may be secondary to mild pulmonary edema or inflammatory changes. Dictated by: Dictated on workstation # [id number]
[2017-01-18 10:35] LABS: MAGNESIUM 2.6 MG/DL (1.8-2.4); PHOSPHORUS 9.6 MG/DL (2.3-4.7)
[2017-01-18] MEDS ORDERED: RT-ALBUTEROL/IPRATROPIUM 3 ML (DUONEB) VIAL INH ONE (10:45)
--- NOTE | 2017-01-18 10:50 | ED General ---
General Chief Complaint: Glucose Problems Stated Complaint: UNRESPONSIVE Nursing Triage Note: [place] FROM [place], UNRESPONSIVE IN W/C BY STAFF, STATES HAS HAD HIGH BLOOD SUGAR Nursing Sepsis Screen: No Definite Risk Source of Information: Caregiver, Retirement Records, Old Records Exam Limitations: Physical Impairments History of Present Illness Time Seen by Provider: 08:58 Initial Comments This 72-year-old woman from [facility] presents to the emergency room by long-term transport. She reportedly had severely high blood sugars at the long-term this morning. She was also not responding normally. She usually is interactive, follows instructions, and can converse. Today she was not responding well to staff. She was "spitting up black" at the long-term and has black-appearing emesis on her tongue and lips. She became completely unresponsive for the oil transport driver in route. She arrives unresponsive and in apparent respiratory distress. She has a DO NOT RESUSCITATE order. High flow oxygen was applied to improve her respiratory status. Septic workup was initiated. care home reports that she was given an extra 10 units of insulin this morning per Dr. Leary's instructions. She was then given her usual 5 units of insulin. Total amount of insulin received prior to arrival was 15 units of insulin. Fingerstick blood sugar on arrival is "high". Allergies and Home Medications Allergies Coded Allergies: No Known Drug Allergies (Unverified , 02/12/11) Home Medications Acetaminophen 500 Mg Tablet, 1,000 MG PO Q4H PRN for PAIN/TEMP, (Reported) TAKES 2 (500MG) TABLETS Albuterol Sulfate 8.5 Gm Hfa.aer.ad, 2 PUFF IH Q4H PRN for SHORTNESS OF BREATH, (Reported) Amoxicillin 500 Mg Tablet, 500 MG PO TID for 3 Days Prescribed by: JAMES GAMA on 11/14/16 1204 Aspirin 81 Mg Tabec, 81 MG PO DAILY, (Reported) Budesonide/Formoterol Fumarate 10.2 Gm Hfa.aer.ad, 2 PUFF IH BID, (Reported) Cetirizine Hcl 10 Mg Tablet, 10 MG PO DAILY PRN for ALLERGIES, (Reported) Insulin Aspart 300 Units/3 Ml Solution, SQ TID, (Reported) 1 UNIT FOR EVERY 35 BS ABOVE 150 3X DAILY 150-185 1 UNIT 186-221 2 UNITS [phone] 3 UNITS [phone] 4 UNITS [phone] 5 UNITS [phone] 6 UNITS [phone] 7 UNITS [phone] 8 UNITS [phone] 9 UNITS [phone] 10 UNITS CALL NURSE IF ABOVE 509 Insulin Aspart 300 Units/3 Ml Solution, 5 UNITS SQ AC, (Reported) Insulin Detemir 100 Unit/1 Ml Insuln.pen, 6 UNITS SQ BID, (Reported) Lorazepam 0.5 Mg Tablet, 0.25-0.5 MG PO BID, #30 TAKES 1/2 TO 1 (0.5MG) TABLET Prescribed by: JAMES GAMA on 11/14/16 1204 Metoprolol Tartrate 25 Mg Tablet, 25 MG PO HS, (Reported) HOLD IF PULSE BELOW 60 Naphazoline Hcl/Phenir Mal 15 Ml Drops, 2 DROPS OU QID PRN for ALLERGIES, ( Reported) Naproxen 500 Mg Tablet, 500 MG PO BID WITH MEALS, (Reported) Omeprazole 20 Mg Capsule.dr, 20 MG PO DAILY, (Reported) Ondansetron 4 Mg/Udtablet Tab.rapdis, 4 MG PO Q8H PRN for NAUSEA, (Reported) Oxycodone HCl/Acetaminophen 1 Each Tablet, 1 TAB PO Q4H PRN for MODERATE PAIN, # 30 Prescribed by: JAMES GAMA on 11/14/16 1204 Sertraline HCl 50 Mg Tablet, 50 MG PO DAILY, (Reported) Tramadol HCl 50 Mg Tablet, 50-100 MG PO Q6H PRN for PAIN, #30 TAKES 1-2 OF A (50 MG) TABLET Prescribed by: JAMES GAMA on 11/14/16 1204 Umeclidinium [place] 62.5 Mcg Blst.w.dev, 1 PUFF IH DAILY, (Reported) Constitutional: see HPI EENTM: no symptoms reported Respiratory: see HPI Cardiovascular: other (tachycardia) Gastrointestinal: see HPI Genitourinary: no symptoms reported : No Musculoskeletal: no symptoms reported Skin: no symptoms reported Psychiatric/Neurological: See HPI Hematologic/Lymphatic: See HPI Immunological/Allergic: no symptoms reported Past Msaxsxm-Vbzkiv-Biuvzs Hx Patient Social History Alcohol Use: Denies Use Recreational Drug Use: No Smoking Status: Former Smoker Type Used: Cigarettes Recent Foreign Travel: No Contact w/Someone Who Travel: No Recent Infectious Disease Expo: No Recent Hopitalizations: No Immunizations Up To Date Tetanus Booster (TDap): Unknown PED Vaccines UTD: No Date of Influenza Vaccine: Jul 11, 2016 Surgeries HX Surgeries: Yes ("stomach") Surgeries: Abdominal, Cardiac Respiratory Hx Respiratory Disorders: Yes Respiratory Disorders: Asthma, Sleep Apnea, COPD Cardiovascular Hx Cardiac Disorders: Yes Cardiac Disorders: Chronic Edema/Swelling, Coronary Artery Disease, High Cholesterol, Hypertension Neurological Hx Neurological Disorders: Yes Neurological Disorders: Dementia 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 System Hx 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 Disorders: 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 Genitourinary Hx Genitourinary Disorders: Yes Genitourinary Disorders: Renal Failure, UTI-Chronic Gastrointestinal Hx Gastrointestinal Disorders: Yes (Constipation) Gastrointestinal Disorders: Gastroesophageal Reflux, Chronic Constipation Musculoskeletal Hx Musculoskeletal Disorders: Yes Musculoskeletal Disorders: Arthritis Endocrine Hx Endocrine Disorders: Yes Endocrine Disorders: Diabetes, Insulin dep HEENT HX ENT Disorders: Yes Hearing Impairment: Hard of Hearing Cancer Hx Cancer: No Psychosocial Hx Psychiatric Problems: Yes Behavioral Health Disorders: Anxiety, Depression Integumentary HX Skin/Integumentary Disorder: No Blood Transfusions Hx Blood Disorders: Yes (Anemia) Adverse Reaction to a Blood Tr: No Family Medical History Significant Family History: Heart Disease, COPD, Seizures Family Medial History: Congenital heart disease 19 MOTHER Physical Exam-Suspected Sepsis Physical Exam Vital Signs Vital Sign - Last 12Hours Capillary Refill : Less Than 3 Seconds Blood Pressure Mean: 87 General Appearance: WD/WN, Thin HEENT: PERRL/EOMI, Normal ENT Inspection, Other (Black emesis on the tongue and lips) Respiratory: Accessory Muscle Use, Decreased Breath Sounds, Wheezing Cardiovascular: No Edema, No Murmur, Tachycardia Gastrointestinal: Normal Bowel Sounds, No Organomegaly, Non Tender, Soft, No Distended Extremity: Normal Inspection, No Pedal Edema Skin: warm/dry, pallor Focused Exam Time of Focused Exam: 11:30 Respiratory: Lungs Clear, Normal Breath Sounds, No Accessory Muscle Use, No Respiratory Distress Cardiovascular: No Edema, No Murmur, Tachycardia Capillary Refill: Less Than 3 Seconds Skin: normal color, warm/dry Lactic Acid Level Laboratory Tests Test 01/18/17 09:02 01/18/17 11:20 Lactic Acid Level 8.28 MMOL/L (0.50-2.00) *H Progress/Results/Core Measures Suspected Sepsis Recent Fever Within 48 Hours: No Infection Criteria Present: None New/Unexplained Altered Menta: No Sepsis Screen: No Definite Risk Sepsis Diagnosis: SIRS Temperature:98.0 Pulse: 120 Respiratory Rate: 25 Laboratory Tests 01/18/17 09:02: White Blood Count 22.8H Blood Pressure 96 /82 Mean: 87 Laboratory Tests 01/18/17 09:02: Creatinine 2.50H, INR Comment 1.0, Platelet Count 363, Total Bilirubin 0.2 Results/Orders Lab Results Laboratory Tests Test 01/18/17 09:01 01/18/17 09:02 01/18/17 09:20 01/18/17 09:37 Range/Units Glucometer > 600 *H > 600 *H 70-110 MG/DL White Blood Count 22.8 H 4.3-11.0 10^3/uL Red Blood Count 4.16 L 4.35-5.85 10^6/uL Hemoglobin 11.9 11.5-16.0 G/DL Hematocrit 39 35-52 % Mean Corpuscular Volume 94 80-99 FL Mean Corpuscular Hemoglobin 29 25-34 PG Mean Corpuscular Hemoglobin Concent 31 L 32-36 G/DL Red Cell Distribution Width 15.1 H 10.0-14.5 % Platelet Count 363 130-400 10^3/uL Mean Platelet Volume 11.9 H 7.4-10.4 FL Neutrophils (%) (Auto) 89 H 42-75 % Lymphocytes (%) (Auto) 6 L 12-44 % Monocytes (%) (Auto) 5 0-12 % Eosinophils (%) (Auto) 0 0-10 % Basophils (%) (Auto) 0 0-10 % Neutrophils # (Auto) 20.3 H 1.8-7.8 X 10^3 Lymphocytes # (Auto) 1.4 1.0-4.0 X 10^3 Monocytes # (Auto) 1.1 H 0.0-1.0 X 10^3 Eosinophils # (Auto) 0.0 0.0-0.3 10^3/uL Basophils # (Auto) 0.1 0.0-0.1 10^3/uL Neutrophils % (Manual) 90 % Lymphocytes % (Manual) 5 % Monocytes % (Manual) 2 % Eosinophils % (Manual) 0 % Basophils % (Manual) 0 % Band Neutrophils 3 % Anisocytosis SLIGHT Elliptocytes SLIGHT Prothrombin Time 13.0 12.2-14.7 SEC INR Comment 1.0 0.8-1.4 Activated Partial Thromboplast Time 26 24-35 SEC Sodium Level 136 135-145 MMOL/L Potassium Level 5.5 H 3.6-5.0 MMOL/L Chloride Level 91 L 98-107 MMOL/L Carbon Dioxide Level 7 *L 21-32 MMOL/L Anion Gap 38 H 5-14 MMOL/L Blood Urea Nitrogen 39 H 7-18 MG/DL Creatinine 2.50 H 0.60-1.30 MG/DL Estimat Glomerular Filtration Rate 19 BUN/Creatinine Ratio 16 Glucose Level 995 *H 70-105 MG/DL Lactic Acid Level 8.28 *H 0.50-2.00 MMOL/L Calcium Level 9.0 8.5-10.1 MG/DL Phosphorus Level 9.6 H 2.3-4.7 MG/DL Magnesium Level 2.6 H 1.8-2.4 MG/DL Total Bilirubin 0.2 0.1-1.0 MG/DL Aspartate Amino Transf (AST/SGOT) 18 5-34 U/L Alanine Aminotransferase (ALT/SGPT) 13 0-55 U/L Alkaline Phosphatase 128 40-136 U/L Total Protein 6.7 6.4-8.2 G/DL Albumin 3.9 3.2-4.5 G/DL Urine Color YELLOW Urine Clarity VERY CLOUDY H Urine pH 5 5-9 Urine Specific [place] 1.020 1.016-1.022 Urine Protein 1+ H NEGATIVE Urine Glucose (UA) 4+ H NEGATIVE Urine Ketones 3+ H NEGATIVE Urine Nitrite NEGATIVE NEGATIVE Urine Bilirubin NEGATIVE NEGATIVE Urine Urobilinogen NORMAL NORMAL MG/DL Urine Leukocyte Esterase 2+ H NEGATIVE Urine RBC (Auto) 2+ H NEGATIVE Urine RBC RARE /HPF Urine WBC 5-10 H /HPF Urine Squamous Epithelial Cells 5-10 /HPF Urine Crystals PRESENT H /LPF Urine Amorphous Sediment [place] URATES H /LPF Urine Bacteria MODERATE H /HPF Urine Casts NONE /LPF Urine Mucus NEGATIVE /LPF Urine Culture Indicated YES Test 01/18/17 10:32 01/18/17 11:20 Range/Units Glucometer > 600 *H 70-110 MG/DL My Orders Orders - DEJUAN BLAIR MD Insulin (Regular) Human (Humulin R (Per (01/18/17 08:59) Cbc With Automated Diff (01/18/17 09:03) Comprehensive Metabolic Panel (01/18/17 09:03) Lactic Acid Analyzer (01/18/17 09:03) Blood Culture (01/18/17 09:03) Sputum Culture (01/18/17 09:03) Ua Culture If Indicated (01/18/17 09:03) Protime With Inr (01/18/17 09:03) Partial Thromboplastin Time (01/18/17 09:03) Chest 1 View, Ap/Pa Only (01/18/17 09:03) O2 (01/18/17 09:03) Saline Lock/Iv-Start (01/18/17 09:03) Saline Lock/Iv-Start (01/18/17 09:03) Vital Signs Adult Sepsis Patie Q1HR (01/18/17 09:03) Remove Rings In Anticipation O (01/18/17 09:03) Ns Iv 1000 Ml (Sodium Chloride 0.9%) (01/18/17 09:03) Insulin (Regular) Human (Humulin R (Per (01/18/17 09:15) Red Cells Leukocytes Reduced (01/18/17 09:05) Famotidine Injection (Pepcid Injection) (01/18/17 09:15) Ondansetron Injection (Zofran Injectio (01/18/17 09:15) Pantoprazole Injection (Protonix Injecti (01/18/17 09:15) Type And Screen (01/18/17 09:05) Accucheck Stat ONCE (01/18/17 09:08) Accucheck Stat ONCE (01/18/17 09:08) Manual Differential (01/18/17 09:02) Piperacillin Sodium/Tazobactam (Zosyn Vi (01/18/17 09:45) Saline Lock/Iv-Start (01/18/17 09:36) Ns Iv 1000 Ml (Sodium Chloride 0.9%) (01/18/17 09:36) Urine Culture (01/18/17 09:20) Ns Iv 1000 Ml (Sodium Chloride 0.9%) (01/18/17 10:02) Insulin (Regular) Human (Humulin R (Per (01/18/17 10:15) Phosphorus (01/18/17 10:06) Magnesium (01/18/17 10:06) Accucheck Stat ONCE (01/18/17 10:29) Insulin (Regular) Human (Humulin R (Per (01/18/17 10:45) Albuterol/Ipra Inhalation Soln (Duoneb I (01/18/17 10:45) Svn Sm Volume Nebulizer Rt-Rfs (01/18/17 10:44) Medications Given in ED Current Medications Medications Dose Ordered Sig/Kd Route Start Time Stop Time Status Last Admin Dose Admin Albuterol/ Ipratropium 3 ml ONCE ONCE INH 01/18/17 10:45 01/18/17 10:46 DC 01/18/17 11:18 3 ML Famotidine 20 mg ONCE ONCE IVP 01/18/17 09:15 01/18/17 09:16 DC 01/18/17 09:16 20 MG Insulin Human Regular 10 unit ONCE ONCE IV 01/18/17 09:15 01/18/17 09:16 DC 01/18/17 09:02 10 UNIT Insulin Human Regular 10 unit ONCE ONCE IV 01/18/17 10:15 01/18/17 10:16 DC 01/18/17 10:05 10 UNIT Insulin Human Regular 10 unit ONCE ONCE IV 01/18/17 10:45 01/18/17 10:46 DC 01/18/17 10:44 10 UNIT Ondansetron HCl 8 mg ONCE ONCE IVP 01/18/17 09:15 01/18/17 09:16 DC 01/18/17 09:16 8 MG Pantoprazole 80 mg ONCE ONCE IV 01/18/17 09:15 01/18/17 09:16 DC 01/18/17 09:15 80 MG Piperacillin Sod/ Tazobactam Sod 4.5 gm/Sodium Chloride 100 ml @ 200 mls/hr ONCE ONCE IV 01/18/17 09:45 01/18/17 10:14 DC 01/18/17 09:47 200 MLS/HR Sodium Chloride 1,000 ml @ 0 mls/hr Q0M ONCE IV 01/18/17 09:03 01/18/17 09:05 DC 01/18/17 09:02 1,000 MLS/HR Sodium Chloride 1,000 ml @ 0 mls/hr Q0M ONCE IV 01/18/17 09:36 01/18/17 09:37 DC 01/18/17 09:30 1,000 MLS/HR Sodium Chloride 1,000 ml @ 0 mls/hr Q0M ONCE IV 01/18/17 10:02 01/18/17 10:04 DC 01/18/17 10:13 1,000 MLS/HR Vital Signs/I&O Vital Sign - Last 12Hours 01/18/17 01/18/17 01/18/17 08:56 08:56 11:20 Temp 98.0 Pulse 120 Resp 25 B/P (MAP) 96/82 Pulse Ox 91 100 100 O2 Delivery Nasal Cannula Nonrebreather O2 Flow Rate 2.00 15.00 10.00 Capillary Refill : Less Than 3 Seconds Blood Pressure Mean: 87 Point of Care Testing Finger Stick Blood Glucose: 600 Blood Glucose Action Taken: RN AND DR NOTIFIED Diagnostic Imaging Diagonstic Imaging: Xray Plain Films/CT/US/NM/MRI: chest Comments NAME: YIN DICKEY [facility] REC#: [id number] PT STATUS: REG ER : 1945 PHYSICIAN: DEJUAN BLAIR MD ADMIT DATE: 01/18/17/ER Signed Date of Exam: 01/18/17 CHEST 1 VIEW, AP/PA ONLY INDICATION: Unresponsive. Comparison with 11/12/2016. FINDINGS: Portable chest again shows cardiomegaly. The lungs are well-aerated. Mild prominence of the interstitial markings noted. There are no consolidated infiltrates. No pleural effusions. No pneumothorax. IMPRESSION: 1. Chronic cardiomegaly. 2. Slight prominence of the interstitial markings on today's exam which may be secondary to mild pulmonary edema or inflammatory changes. Dictated by: Dictated on workstation # [id number] Dict: 01/18/17 0947 Trans: 01/18/17 1019 Interpreted by: ZULEYMA STILES MD Electronically signed by: ZULEYMA STILES MD 01/18/17 1019 Critical Care Note Critical Care Start Time: 09:00 Stop Time: 11:00 Total Time (minutes) Patient's respiratory status improved with application of high flow oxygen. Intubation was not pursued due to the DNR status. Septic workup was initiated. Patient was found to have severe hyperglycemia and severe lactic acidosis. She was given a dose of Zosyn to initiate antibiotic therapy. Urinary tract infection was identified as possible source of infection. She received a total of 30 units of IV insulin and 3000 mL of normal saline boluses. Fingerstick blood sugar was still "high" at the time of admission. Patient's mental status did improve during her ER stay. She began to look around and respond to voice. Patient is being diagnosed with severe sepsis with septic shock as it took 2 L of IV fluids (greater than 30 ML per kilogram) to resuscitate her blood pressure. On reexamination, patient was found to be wheezing and a DuoNeb treatment was ordered. Reexamination showed stable vital signs, warm pain skin , and improved pulmonary status. Attempts to contact family by reviewing contacts in her chart and with the long-term failed to produce any accessible contacts. Departure Communication Time/Spoke to Admitting Phy: 10:[address] Leary contacted regarding admission. She agrees with admission to the ICU with treatment for severe sepsis. Labs, clinical condition, x-ray findings, and course of care in the ER was communicated. Severe sepsis and DKA order sets were added to the bridging orders. Dr. Leary was made aware. I requested that Dr. Leary see this patient within the next few hours due to the numerous severe problems she is experiencing. Impression Impression: Primary Impression: Severe sepsis Additional Impressions: Septic shock Urinary tract infection Qualified Codes: N39.0 - Urinary tract infection, site not specified Metabolic acidosis severe hyperglycemia Hyperkalemia Hypermagnesemia Hyperphosphatemia Altered mental status Qualified Codes: R41.82 - Altered mental status, unspecified Respiratory failure Qualified Codes: J96.01 - Acute respiratory failure with hypoxia Bronchospasm Acute renal failure Qualified Codes: N17.9 - Acute kidney failure, unspecified suspected GI bleed Disposition: ADMITTED INPATIENT Condition: Improved Decision to Admit Reason: Admit from ER (General) Decision to Admit/Date: Jan 18, 2017 Time/Decision to Admit Time: 09:08 Departure-Patient Inst. Referrals: FABI GARZA MD (PCP/Family) Primary Care Physician DEJUAN BLAIR MD Jan 18, 2017 10:50
[2017-01-18] MEDS: NS IV 1000 ML 1,000 ML IV SCH ×2 (11:45→18:18)
[2017-01-18] MEDS ORDERED: inSUlin REGULAR TPN/DRIP 250 UNITS/NS 250 ML IV SCH ×2 (12:15)
[2017-01-18] MEDS ORDERED: ONDANSETRON 4 MG/2 ML (SDV) Z0FRAN IV PRN (12:30)
[2017-01-18] MEDS ORDERED: RT-ALBUTEROL SULF 2.5 MG/3 ML PRE-MIX VIAL IH PRN (12:30)
[2017-01-18] MEDS ORDERED: VANCOMYCIN 1 GM/NS 250 ML IVPB IV NR ×2 (13:00)
[2017-01-18] MEDS: PIPERACILLIN SODIUM/TAZOBACTAM 4.5 GM in NS (IVPB) 100 ML IV SCH (16:04)
[2017-01-18] MEDS: RT-ALBUTEROL/IPRATROPIUM 3 ML (DUONEB) VIAL IH SCH ×2 (18:59→19:47)
[2017-01-18] MEDS ORDERED: D5 1/2 NS 1000 ML IV SOLUTION 1,000 ML IV ONE (19:20)
[2017-01-18] MEDS: D5 1/2 NS 1000 ML IV SOLUTION 1,000 ML IV SCH ×2 (19:30→23:30)
[2017-01-18 20:12] LABS: CALCIUM 8.6 MG/DL (8.5-10.1); CREATININE SERUM 1.63 MG/DL (0.60-1.30); POTASSIUM 3.3 MMOL/L (3.6-5.0)
[2017-01-18] MEDS ORDERED: D5 1/2 NS W/KCL 20 MEQ/L 1,000 ML IV ONE (20:44)
[2017-01-18] MEDS: D5 1/2 NS W/KCL 20 MEQ/L 1,000 ML IV SCH (20:56)
[2017-01-18] MEDS ORDERED: DEXTROSE 10% IV SOLUTION 1,000 ML IV ONE (22:03)
[2017-01-18 22:36] LABS: CALCIUM 8.3 MG/DL (8.5-10.1); CREATININE SERUM 1.53 MG/DL (0.60-1.30); POTASSIUM 3.1 MMOL/L (3.6-5.0)
[2017-01-19] VITALS (16 sets, daily range): BP systolic 102–158; BP diastolic 56–100
[2017-01-19] MEDS ORDERED: D5 1/2 NS W/KCL 20 MEQ/L 1,000 ML IV ONE (01:23)
[2017-01-19] MEDS: D5 1/2 NS W/KCL 20 MEQ/L 1,000 ML IV SCH (01:29)
[2017-01-19 02:08] LABS: BASOPHILS % (AUTO) 0 % (0-10); EOSINOPHILS % (AUTO) 0 % (0-10); LYMPHOCYTES # (AUTO) 1.4 X 10^3 (1.0-4.0); LYMPHOCYTES % (AUTO) 6 % (12-44); MEAN CORPUSCULAR HEMOGLOBIN 29 PG (25-34); MEAN CORPUSCULAR HGB CONC 33 G/DL (32-36); MEAN CORPUSCULAR VOLUME 88 FL (80-99); MEAN PLATELET VOLUME 11.1 FL (7.4-10.4); MONOCYTES # (AUTO) 1.6 X 10^3 (0.0-1.0); MONOCYTES % (AUTO) 7 % (0-12); NEUTROPHILS # (AUTO) 21.9 X 10^3 (1.8-7.8); NEUTROPHILS % (AUTO) 88 % (42-75); PLATELET COUNT 254 10^3/uL (130-400); RED BLOOD COUNT 3.61 10^6/uL (4.35-5.85); RED CELL DISTRIBUTION WIDTH 14.9 % (10.0-14.5); WHITE BLOOD COUNT 24.9 10^3/uL (4.3-11.0)
[2017-01-19] MEDS: RT-ALBUTEROL/IPRATROPIUM 3 ML (DUONEB) VIAL IH SCH ×4 (02:11→21:59)
[2017-01-19 02:26] LABS: CALCIUM 8.5 MG/DL (8.5-10.1); CREATININE SERUM 1.46 MG/DL (0.60-1.30); MAGNESIUM 1.8 MG/DL (1.8-2.4); POTASSIUM 3.3 MMOL/L (3.6-5.0)
[2017-01-19] MEDS: D5 1/2 NS 1000 ML IV SOLUTION 1,000 ML IV SCH (03:30)
[2017-01-19] MEDS ORDERED: 1/2 NS W/KCL 20 MEQ/L 1,000 ML IV ONE (03:31)
[2017-01-19] MEDS ORDERED: inSUlin DETERMIR 1 UNIT/0.01 ML (LEVEMIR) CHARGE PER UNIT SQ ONE ×2 (03:52→04:15)
[2017-01-19] MEDS ORDERED: 1/2 NS W/KCL 20 MEQ/L 1,000 ML IV SCH (04:15)
[2017-01-19] MEDS: POTASSIUM CL 10MEQ/50ML IVPB 50 ML IV SCH ×4 (04:20→08:06)
[2017-01-19] MEDS: MAGNESIUM 1 GM/100 ML IVPB 100 ML IV SCH ×2 (04:21→04:45)
[2017-01-19] MEDS: PIPERACILLIN SODIUM/TAZOBACTAM 4.5 GM in NS (IVPB) 100 ML IV SCH ×3 (04:22→21:06)
[2017-01-19] MEDS: inSUlin ASPART (NovoLOG) 1 UNIT/0.01 ML (CHARGE PER UNIT) SC SCH ×5 (05:29→21:07)
[2017-01-19] MEDS ORDERED: POTASSIUM CL 10MEQ/50ML IVPB 50 ML IV SCH (06:00)
[2017-01-19] MEDS ORDERED: MAGNESIUM 1 GM/100 ML IVPB 100 ML IV SCH (06:00)
[2017-01-19] MEDS ORDERED: KCL 20 MEQ TAB (K-DUR) PO SCH (06:00)
[2017-01-19] MEDS ORDERED: FAMOTIDINE 20MG/2ML IV (PEPCID) IV SCH (09:00)
[2017-01-19] MEDS ORDERED: PANTOPRAZOLE 40 MG/10 ML (PROTONIX) VIAL IV SCH (09:00)
--- NOTE | 2017-01-19 09:29 | Diagnostic Imaging Report ---
EXAMINATION: Portable upright radiograph of the chest. INDICATION: Severe sepsis. FINDINGS: The cardiac size is moderately enlarged. There is pulmonary vascular congestion which appears more prominent when compared to the prior exam. Minimal bibasilar infiltrates or atelectasis are seen. No effusion or pneumothorax. The mediastinum and kayla appear unremarkable. IMPRESSION: Cardiomegaly with pulmonary vascular congestion. Minimal bibasilar infiltrate or atelectasis. Dictated by: Dictated on workstation # [id number]
--- NOTE | 2017-01-19 09:36 | History & Physical-Hospitalist ---
HPI History of Present Illness: HPI/Chief Complaint CC: sepsis with altered mental status HPI: This is 72-year-old white female clinic patient of [facility]. Has had multiple hospitalizations for a multitude of problems including worsening dementia to the severity requiring long-term placement the presents to the hospital with fever and altered mental status found to have sepsis likely UTI and pneumonia. She is placed in the ICU for sepsis protocol received IV fluid resuscitation but patient is such and decline status that overall futility is noted to proceed on with aggressive treatment such as this and she is barely able to swallow per speech therapy so she will be transferred down to the floor maintained on maintenance fluids and IV antibiotics and will be moving to the long-term on hospice and she has less than 6 months to live in my opinion. This current time patient is not aware of anything cannot speak and very lethargic. Exam Limitations: clinical condition (severe dementia and lethargy) Date Seen 01/19/17 Attending Physician Charlotte Leary MD PCP Gerardo Landeros MD Referring Physician Date of Admission Jan 18, 2017 at 11:07 Home Medications & Allergies Home Medications Reviewed patient Home Medication Reconciliation Form Allergies Allergies Coded Allergies No Known Drug Allergies (Unverified02/12/11) Past Mujbtdl-Qxvajq-Atdtyr Hx Patient Social History Marrital Status: Employed/Student: retired Alcohol Use: Denies Use Recreational Drug Use: No Smoking Status: Former Smoker Type Used: Cigarettes Physical Abuse Screen: No Sexual Abuse: No Recent Foreign Travel: No Contact w/other who traveled: No Recent Hopitalizations: No Recent Infectious Disease Expo: No Immunizations Up To Date Tetanus Booster (TDap): Unknown Date of Influenza Vaccine: Jul 11, 2016 Seasonal Allergies Seasonal Allergies: No Surgeries HX Surgeries: Yes ("stomach") Surgeries: Abdominal, Cardiac Respiratory Hx Respiratory Disorders: Yes Respiratory Disorders: COPD Cardiovascular Hx Cardiovascular Disorders: Yes Cardiac Disorders: Chronic Edema/Swelling, Coronary Artery Disease, High Cholesterol, Hypertension Neurological Hx Neurological Disorders: Yes Neurological Disorders: Dementia 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 System Hx 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 Disorders: No Genitourinary Hx Genitourinary Disorders: Yes Genitourinary Disorders: Renal Failure, UTI-Chronic Gastrointestinal Hx Gastrointestinal Disorders: Yes (Constipation) Gastrointestinal Disorders: Gastroesophageal Reflux, Chronic Constipation Musculoskeletal Hx Musculoskeletal Disorders: Yes Musculoskeletal Disorders: Arthritis Endocrine Hx Endocrine Disorders: Yes Endocrine Disorders: Diabetes, Insulin dep HEENT HX ENT Disorders: Yes Hearing Impairment: Hard of Hearing Cancer Hx Cancer: No Psychosocial Hx Psychiatric Problems: Yes Behavioral Health Disorders: Anxiety, Depression Integumentary HX Skin/Integumentary Disorder: No Blood Transfusions Hx Blood Disorders: Yes (Anemia) Adverse Reaction to a Blood Tr: No Family Medical History Significant Family History: Heart Disease, COPD, Seizures Family Hx: Congenital heart disease 19 MOTHER Review of Systems ROS-Unable to Obtain: unable to ascertain due to severe dementia Constitutional: see HPI Physical Exam Physical Exam Vital Signs Vital Sign - Last 12Hours Capillary Refill : Less Than 3 Seconds General Appearance: No Apparent Distress, WD/WN, Chronically ill, Thin Eyes: Bilateral Eye Normal Inspection, Bilateral Eye PERRL HEENT: PERRL/EOMI, Normal ENT Inspection, Pharynx Normal Neck: Full Range of Motion, Normal Inspection, Non Tender, Supple, Carotid Bruit Respiratory: Chest Non Tender, No Accessory Muscle Use, No Respiratory Distress , Crackles, Decreased Breath Sounds Cardiovascular: Regular Rate, Rhythm, No Edema, No Gallop, No JVD, No Murmur, Normal Peripheral Pulses Gastrointestinal: Normal Bowel Sounds, No Organomegaly, No Pulsatile Mass, Non Tender, Soft Back: Normal Inspection, No CVA Tenderness, No Vertebral Tenderness Extremity: Normal Capillary Refill, Normal Inspection, Normal Range of Motion, Non Tender, No Calf Tenderness, No Pedal Edema Neurologic/Psychiatric: No Motor/Sensory Deficits, Normal Mood/Affect, Disoriented x3, Other (lethargic) Skin: Normal Color, Warm/Dry Lymphatic: No Adenopathy Results Results/Procedures Lab Laboratory Tests 01/18/17 09:02 01/18/17 19:52 01/18/17 22:07 01/19/17 02:00 Assessment/Plan Admission Diagnosis Assessment: Sepsis due to UTI with enterococcus and pneumonia facility acquired Very end-stage dementia end-of-life status Leukocytosis Anemia of chronic illness Leukocytosis Diabetes mellitus Overall severe debility Assessment and Plan Plan: Transfer to floor Maintenance fluids IV antibiotics empirically Needs hospice at discharge Clinical Quality Measures DVT/VTE Risk/Contraindication: Risk Factor Score Per Nursin RFS Level Per Nursing on Admit: 4+=Very High JAMES GAMA DO January 19, 2017 09:36
--- NOTE | 2017-01-19 09:48 | ST Dysphagia Evaluation ---
Speech Evaluation-General Medical Diagnosis Severe Sepsis, UTI Onset Date: Jan 18, 2017 Therapy Diagnosis Therapy Diagnosis: Oropharyngeal Swallow WFL Precautions Precautions: Aspiration Precautions/Isolations: Fall Prevention, Standard Precautions Referral Referring Physician: Dr. Charlotte Leary Reason for Referral: Evaluation/Treatment Clinical Bedside Swallowing Evaluation Medical History Pertinent Medical History: CAD, COPD, DM, GERD Reviewed History: Yes Speech PLF/Current-Dysphagia Prior Level of Function The patient was unable to provide prior level of function information to the clinician regardless of maximum verbal prompting. Subjective The patient was recently admitted to [facility] with a diagnosis of severe sepsis and UTI. The patient was sleeping upon entrance to room. With maximum clinician verbal prompting, the patient was roused to an appropriate alertness level for PO intake, however, remained with eyes closed for a majority of the session. The patient was agreeable to the dysphagia evaluation via head nod to clinician. CXR: 01/19/17: Cardiomegaly with pulmonary vascular congestion. Minimal bibasilar infiltrate or atelectasis. Cognitive Status The patient did not respond to orientation questions poised by the clinician. Oral Motor Skills Dentition: Edentalous Ability to Follow Directions: Poor The patient is NPO pending the results of the bedside swallowing evaluation. Oral Expression Ability: Moderate Impairment Face Facial Symmetry: Symmetrical (At rest. The patient did not participate in an oral motor evaluation.) Oral-Facial Assessment The patient was unable to participate in an oral motor assessment. An overt facial droop was not present. The patient is currently receiving 3L of supplemental oxygen via nasal cannula. The patient's SpO2% at baseline is 99%. Dysphagia Evaluation Consistencies Presented: Thin Liquid, Pureed - No oral phase impairments were noted throughout the evaluation. - No pharyngeal phase impairments were noted throughout the evaluation. - Thin Liquid (via teaspoon and straw), Puree: No signs/symptoms of aspiration were demonstrated with any consistency tested. The patient's SpO2% remained at 99% throughout the evaluation. To note: Solid consistencies were deferred secondary to the patient's edentulous state and fluctuating alertness. Dietary Recommendations: Pureed Liquid Recommendations: Thin Swallowing Precautions: Small Bites and Sips, Sitting Upright 90 Degrees - Crush medication and place in puree for administration. - Alert and upright for all PO intake. Dysphagia Evaluation Summary The patient demonstrated an oropharyngeal swallow function grossly within normal limits. Barriers to Learning Cognition, Fatigue Speech-Plan Treatment Plan Speech Therapy Treatment Plan: Discontinue ST Evaluation, only. Rehab Potential: Guarded Safety Risks/Education Teaching Recipient: Patient Teaching Methods: Discussion Response to Teaching: Reinforcement Needed Education Topics Provided: Results, Recommendations, Swallowing Strategies, Signs/Symptoms of Aspiration Time Speech Therapy Time In: 08:45 Speech Therapy Time Out: 09:00 Total Billed Time: 15 Billed Treatment Time 1, CALVIN MOODY January 19, 2017 09:48
[2017-01-19] MEDS: NS IV 1000 ML 1,000 ML IV SCH ×2 (10:28→18:40)
[2017-01-19] MEDS: fluCOnazole (DIFLUCAN) 100 MG TAB PO SCH (11:35)
[2017-01-19] MEDS ORDERED: TRAM50TA2 PO (11:43)
[2017-01-19] MEDS ORDERED: LORA0.5T PO (11:43)
[2017-01-19] MEDS ORDERED: NYST1POW22 TP (11:43)
[2017-01-19] MEDS ORDERED: INSU100V5 SQ (11:43)
[2017-01-19] MEDS ORDERED: INSU100I14 SQ (11:43)
[2017-01-19] MEDS ORDERED: MENT71OI TP (11:43)
[2017-01-19] MEDS ORDERED: DONE10TA41 PO (11:43)
[2017-01-19] MEDS ORDERED: TROUGH ORDER-PHARMACY XX NR (12:00)
[2017-01-19] MEDS ORDERED: VANCOMYCIN 750 MG/NS 250 ML IVPB IV SCH ×2 (13:00)
[2017-01-19] MEDS ORDERED: morphine INJ 4 MG/ML 1 ML (VIAL/SYRINGE) IVP PRN (18:15)
[2017-01-19] MEDS: MICONAZOLE NITRATE 2% CRM 30 GM TP SCH (21:07)
[2017-01-20] VITALS: BP 170/73
[2017-01-20] MEDS: inSUlin ASPART (NovoLOG) 1 UNIT/0.01 ML (CHARGE PER UNIT) SC SCH ×4 (00:05→12:27)
[2017-01-20] MEDS: RT-ALBUTEROL/IPRATROPIUM 3 ML (DUONEB) VIAL IH SCH ×2 (02:26→10:17)
[2017-01-20 04:00] VITALS: BP 167/74
[2017-01-20] MEDS: PIPERACILLIN SODIUM/TAZOBACTAM 4.5 GM in NS (IVPB) 100 ML IV SCH ×2 (04:40→13:47)
[2017-01-20 08:00] VITALS: BP 141/69
[2017-01-20] MEDS: fluCOnazole (DIFLUCAN) 100 MG TAB PO SCH (08:08)
[2017-01-20] MEDS: NS IV 1000 ML 1,000 ML IV SCH (08:08)
[2017-01-20] MEDS: MICONAZOLE NITRATE 2% CRM 30 GM TP SCH (08:09)
[2017-01-20] MEDS ORDERED: AMOX500T2 PO (08:56)
[2017-01-20] MEDS ORDERED: MORP100S3 PO (08:56)
[2017-01-20] MEDS ORDERED: LORA2ORA PO (08:56)
--- NOTE | 2017-01-20 09:00 | Discharge Summary-Hospitalist ---
Diagnosis/Chief Complaint Date of Admission Jan 18, 2017 at 11:07 Date of Discharge Discharge Date: January 20, 2017 Admission Diagnosis Assessment: Sepsis due to UTI with enterococcus and pneumonia facility acquired Very end-stage dementia end-of-life status Leukocytosis Anemia of chronic illness Leukocytosis Diabetes mellitus Overall severe debility Discharge Diagnosis Assessment: Sepsis due to UTI with enterococcus and pneumonia facility acquired Very end-stage dementia end-of-life status Leukocytosis Anemia of chronic illness Leukocytosis Diabetes mellitus Overall severe debility Plan: Transfer to floor Maintenance fluids IV antibiotics empirically Needs hospice at discharge Reason Hospital Visit/Course CC: sepsis with altered mental status HPI: This is 72-year-old white female clinic patient of [facility]. Has had multiple hospitalizations for a multitude of problems including worsening dementia to the severity requiring senior care placement the presents to the hospital with fever and altered mental status found to have sepsis likely UTI and pneumonia. She is placed in the ICU for sepsis protocol received IV fluid resuscitation but patient is such and decline status that overall futility is noted to proceed on with aggressive treatment such as this and she is barely able to swallow per speech therapy so she will be transferred down to the floor maintained on maintenance fluids and IV antibiotics and will be moving to the senior care on hospice and she has less than 6 months to live in my opinion. This current time patient is not aware of anything cannot speak and very lethargic. Note from 01/19/17: Patient awake and alert but very wheezy and possible aspiration yesterday End-stage illness and will need hospice at discharge I updated primary care provider [facility] nurse manager council on this plan Morphine and lorazepam prescriptions have been ordered for comfort care End-stage illness Patient awake in no distress but wheezing all sommer no knee and noted appears to be in no pain but does not converse Hospital course: Patient had a brief hospital course she was admitted to the ICU for sepsis for pneumonia versus UTI with acute renal failure but she declines so much and has had such chronic debility it was deemed futile to proceed on with aggressive treatment so she was placed on comfort care and she will go home on hospice at the senior care and all in agreement with the plan due to the end-stage life status she is currently. Discharge Summary Discharge Physical Examination Allergies: Coded Allergies: No Known Drug Allergies (Unverified , 02/12/11) Vitals & I&Os Vital Signs Date Time Temp Pulse Resp B/P (MAP) Pulse Ox O2 Delivery O2 Flow Rate FiO2 01/20/17 08:00 98.5 90 26 141/69 96 Nasal Cannula 2.00 Hospital Course Labs (last 24 hrs) Laboratory Tests 01/19/17 11:38: Glucometer 60*L 01/19/17 16:30: Glucometer 41*L 01/19/17 17:06: Glucometer 105 01/19/17 20:01: Glucometer 295H 01/19/17 23:56: Glucometer 87 01/20/17 04:09: Glucometer 65L 01/20/17 07:59: Glucometer 318H Microbiology 01/18/17 Blood Culture - Preliminary, Resulted No growth 01/18/17 Urine Culture - Final, Complete Escherichia Coli Enterococcus Faecalis Proteus Mirabilis Pending Labs Laboratory Tests 01/20/17 04:09: Glucometer 65 01/20/17 07:59: Glucometer 318 Discharge Home Medications: Active Scripts Active Lorazepam Intensol (Lorazepam) 2 Mg/1 Ml Oral.conc 1 Mg PO Q3HR PRN Morphine Sulfate Concentrate 20mg/ml (Morphine Sulfate) 100 Mg/5 Ml Solution 5 Mg PO Q2H PRN Amoxicillin 500 Mg Tablet 500 Mg PO TID 3 Days Reported Tramadol HCl 50 Mg Tablet 50 Mg PO Q6H PRN Nystatin 1 Each Powder.ea. TP Q12H PRN Calmoseptine Ointment (Menthol/Lanolin/Calamine/Znox) 71 Gm Oint TP Q12H PRN Novolog Flexpen (Insulin Aspart) 300 Units/3 Ml Solution 5 Units SQ AC Lorazepam 0.5 Mg Tablet 0.5 Mg PO BID Levemir (Insulin Determir) 1,000 Units/10 Ml Soln 6 Units SQ HS Donepezil HCl 10 Mg Tablet 10 Mg PO DAILY Levemir Flextouch (Insulin Detemir) 100 Unit/1 Ml Insuln.pen 10 Units SQ DAILY Proair Hfa (Albuterol Sulfate) 8.5 Gm Hfa.aer.ad 2 Puff IH Q4H PRN Metoprolol Tartrate 25 Mg Tablet 25 Mg PO HS HOLD IF PULSE BELOW 60 Novolog Flexpen (Insulin Aspart) 300 Units/3 Ml Solution SQ SLIDING/SCALE 1 UNIT FOR EVERY 35 BS ABOVE 150 3X DAILY 150-185 1 UNIT [phone] 2 UNITS [phone] 3 UNITS [phone] 4 UNITS [phone] 5 UNITS [phone] 6 UNITS [phone] 7 UNITS [phone] 8 UNITS [phone] 9 UNITS [phone] 10 UNITS CALL NURSE IF ABOVE 509 Symbicort 160-4.5 Mcg Inhaler (Budesonide/Formoterol Fumarate) 10.2 Gm Hfa.aer.ad 2 Puff IH BID Naproxen 500 Mg Tablet 500 Mg PO BID WITH MEALS Omeprazole 20 Mg Capsule.dr 20 Mg PO DAILY@1400 Sertraline HCl 50 Mg Tablet 50 Mg PO DAILY Incruse Ellipta (Umeclidinium [place]) 62.5 Mcg Blst.w.dev 1 Puff IH DAILY Zofran Odt (Ondansetron) 4 Mg/Udtablet Tab.rapdis 4 Mg PO Q8H PRN Cetirizine Hcl (Cetirizine HCl) 10 Mg Tablet 10 Mg PO DAILY PRN Visine-A Eye Allergy Drops (Naphazoline Hcl/Phenir Mal) 15 Ml Drops 2 Drops OU QID PRN Pain Relief Extra Strength (Acetaminophen) 500 Mg Tablet 1,000 Mg PO Q4H PRN TAKES 2 (500MG) TABLETS Aspirin Ec 81 Mg (Aspirin) 81 Mg Tabec 81 Mg PO DAILY Instructions to patient/family Please see electonic discharge instructions given to patient. Clinical Quality Measures DVT/VTE Risk/Contraindication: Risk Factor Score Per Nursin RFS Level Per Nursing on Admit: 4+=Very High JAMES GAAM DO January 20, 2017 09:00
[2017-01-20 11:36] VITALS: BP 136/63
[2017-01-20] MEDS ORDERED: TROUGH ORDER-PHARMACY XX NR (12:00)
== END 2017-01-20 14:40 | disposition hospice, inpatient (51) | DRG 871 ==
LOC: EDUNIT# 08:56 → ER 08:58 → ICU 11:07 → 4TH 01-19 12:56
PROVIDERS: ADMIT Family Medicine; ATTEND Family Medicine
DX: A41.81 Sepsis due to Enterococcus (principal); R65.21 Severe sepsis with septic shock; N39.0 Urinary tract infection, site not specified; J44.0 Chronic obstructive pulmonary disease with (acute) lower respiratory infection; J18.9 Pneumonia, unspecified organism; J96.01 Acute respiratory failure with hypoxia; N17.9 Acute kidney failure, unspecified; K92.0 Hematemesis; Z66 Do not resuscitate; E11.65 Type 2 diabetes mellitus with hyperglycemia; E87.5 Hyperkalemia; E83.41 Hypermagnesemia; E83.39 Other disorders of phosphorus metabolism; J45.909 Unspecified asthma, uncomplicated; G47.30 Sleep apnea, unspecified; I25.10 Atherosclerotic heart disease of native coronary artery without angina pectoris; I10 Essential (primary) hypertension; E78.00 Pure hypercholesterolemia, unspecified; D63.8 Anemia in other chronic diseases classified elsewhere; F03.90 Unspecified dementia, unspecified severity, without behavioral disturbance, psychotic disturbance, mood disturbance, and anxiety; F41.9 Anxiety disorder, unspecified; F32.9 Major depressive disorder, single episode, unspecified; R53.81 Other malaise; Z79.4 Long term (current) use of insulin; Z87.891 Personal history of nicotine dependence
CPT/HCPCS: 36415; 51702; 71010; 80048; 80053; 81000; 82962; 83605; 83735; 84100; 85007; 85025; 85027; 85610; 85730; 86850; 86900; 86901; 86920; 87040; 87077; 87088; 87186; 94640; 94760; 96361; 96374; 96375; 96376